=== PATIENT | male | born 1965 ===

== ENCOUNTER 2017-09-05 20:03 | Emergency (ER) | payer OTHER ==
[~2017-09-05] VITALS: Ht 172.7 cm; Wt 101.0 kg
[~2017-09-05 20:03] MED LIST: INSU100I18 SQ-INSULIN; LISI-167 PO; NPH,100V SQ-INSULIN; SULF-169 PO; ambilify INJ
[2017-09-05] MEDS ORDERED: SODIUM CHLORIDE 0.9% 1,000 ML IV ONE (20:48)
[2017-09-05] MEDS ORDERED: THIAMINE 100 MG in DEXTROSE 5% 50 ML IVPB ONE (21:00)
[2017-09-05] MEDS ORDERED: SODIUM CHLORIDE FLUSH 10ML SYR IVF ONE (21:00)
[2017-09-05 21:12] LABS: BASOPHILS # (AUTO) 0.03 x10^3/uL (0-0.1); BASOPHILS % (AUTO) 0 % (0-1); EOSINOPHILS # (AUTO) 0.02 x10^3/uL (0-0.4); EOSINOPHILS % (AUTO) 0 % (1-7); LYMPHOCYTES # (AUTO) 1.55 x10^3/uL (1-3.4); LYMPHOCYTES % (AUTO) 17 % (22-44); MD NO; MEAN CORPUSCULAR HEMOGLOBIN 31.8 pg (27.5-34.5); MEAN CORPUSCULAR HGB CONC 33.1 g/dL (33.2-36.2); MEAN CORPUSCULAR VOLUME 95.9 fL (81-97); MEAN PLATELET VOLUME 6.9 fL (7.4-10.4); MONOCYTES % (AUTO) 6 % (2-9); NEUTROPHILS % (AUTO) 77 % (42-75); PLATELET COUNT 297 x10^3/uL (130-400); RED BLOOD COUNT 5.22 x10^6/uL (4.38-5.82); RED CELL DISTRIBUTION WIDTH 13.7 % (9.4-14.8)
[2017-09-05 21:23] LABS: ALANINE AMINOTRANSFERASE 49 U/L (12-78); ALBUMIN 4.3 g/dL (3.4-5.0); ANION GAP 14 mmol/L (5-15); CALCIUM 8.3 mg/dL (8.5-10.1); CHLORIDE 104 mmol/L (98-107)
[2017-09-05 21:24] LABS: SALICYLATE LEVEL < 1.7 mg/dL (2.8-20.0)
[2017-09-05 21:25] LABS: ALKALINE PHOSPHATASE 155 U/L (45-117); BILIRUBIN,TOTAL 0.4 mg/dL (0.2-1.0); TOTAL PROTEIN 9.3 g/dL (6.4-8.2)
[2017-09-05 21:26] VITALS: BP 153/101
[2017-09-05 21:26] LABS: ACETAMINOPHEN < 2 mcg/mL (10-30)
[2017-09-05 21:53] LABS: AMPHETAMINE SCREEN, URINE Positive (Negative); BARBITURATE SCREEN, URINE Negative (Negative); BENZODIAZEPINE SCREEN, URINE Negative (Negative); CANNABINOID SCREEN, URINE Negative (Negative); COCAINE SCREEN, URINE Negative (Negative); METHADONE SCREEN, URINE Negative (Negative); OPIATE SCREEN, URINE Negative (Negative)
== END 2017-09-05 23:48 | disposition left against medical advice (07) ==
LOC: ED 23:42
DX: S43.422A Sprain of left rotator cuff capsule, initial encounter (principal); F10.120 Alcohol abuse with intoxication, uncomplicated; I10 Essential (primary) hypertension; E11.10 Type 2 diabetes mellitus with ketoacidosis without coma; X58.XXXA Exposure to other specified factors, initial encounter; Y93.89 Activity, other specified; Y92.830 Public park as the place of occurrence of the external cause; Y99.8 Other external cause status; Z79.4 Long term (current) use of insulin
CPT/HCPCS: 36415; 70450; 71045; 73030; 80053; 80307; 80329; 82140; 82962; 85025; 93005; 96365; 96366; 99285; J3411; J7030; G0480

== ENCOUNTER 2017-09-15 17:25 | Emergency (ER) | payer OTHER ==
[~2017-09-15] VITALS: Ht 177.8 cm; Wt 105.0 kg
[2017-09-15] MEDS ORDERED: IBUPROFEN 200 MG TABLET ONE (18:15)
[2017-09-15] MEDS ORDERED: IBUPROFEN 200 MG TABLET PO ONE (18:30)
[2017-09-15 18:57] VITALS: BP 166/103
== END 2017-09-15 18:59 | disposition home or self-care (01) ==
LOC: ED 18:53
DX: S06.0X0A Concussion without loss of consciousness, initial encounter (principal); S40.012A Contusion of left shoulder, initial encounter; Z72.89 Other problems related to lifestyle; F10.10 Alcohol abuse, uncomplicated; E11.10 Type 2 diabetes mellitus with ketoacidosis without coma; I10 Essential (primary) hypertension; W19.XXXA Unspecified fall, initial encounter; Y93.89 Activity, other specified; Y92.89 Other specified places as the place of occurrence of the external cause; Y99.9 Unspecified external cause status
CPT/HCPCS: 70450; 93005; 99284

== ENCOUNTER 2018-04-24 14:48 | Emergency (ER) | payer OTHER | END 2018-04-24 15:32 | LOC: ED 15:26 | DX: H57.8 Other specified disorders of eye and adnexa (principal); Z53.21 Procedure and treatment not carried out due to patient leaving prior to being seen by health care provider ==

== ENCOUNTER 2018-07-12 16:14 | Inpatient (IN) | payer MEDICAID ==
[~2018-07-12] VITALS: Ht 177.8 cm; Wt 112.2 kg
[2018-07-12] MEDS ORDERED: DILTIAZEM 125 MG in DEXTROSE 5% 100 ML IV SCH (16:27)
[2018-07-12] MEDS ORDERED: DILTIAZEM 5 MG/ML, 5ML IV ONE (16:30)
[2018-07-12] MEDS ORDERED: SODIUM CHLORIDE FLUSH 10ML SYR IVF ONE (16:30)
[2018-07-12] MEDS ORDERED: DILTIAZEM 5 MG/ML, 5ML ONE (16:44)
[2018-07-12 16:59] LABS: BASOPHILS # (AUTO) 0.03 x10^3/uL (0-0.1); BASOPHILS % (AUTO) 0 % (0-1); EOSINOPHILS # (AUTO) 0.04 x10^3/uL (0-0.4); EOSINOPHILS % (AUTO) 1 % (1-7); LYMPHOCYTES # (AUTO) 1.14 x10^3/uL (1-3.4); LYMPHOCYTES % (AUTO) 16 % (22-44); MD NO; MEAN CORPUSCULAR HGB CONC 33.6 g/dL (33.2-36.2); MEAN CORPUSCULAR VOLUME 98.1 fL (81-97); MEAN PLATELET VOLUME 6.9 fL (7.4-10.4); MONOCYTES # (AUTO) 0.89 x10^3/uL (0.2-0.8); MONOCYTES % (AUTO) 12 % (2-9); NEUTROPHILS # (AUTO) 5.26 x10^3/uL (1.8-6.8); NEUTROPHILS % (AUTO) 72 % (42-75); PLATELET COUNT 268 x10^3/uL (130-400); RED BLOOD COUNT 4.14 x10^6/uL (4.38-5.82); RED CELL DISTRIBUTION WIDTH 14.6 % (9.4-14.8)
[2018-07-12 17:08] LABS: INTERNATIONAL NORMALIZED RATIO 1.14 (0.93-1.1)
[2018-07-12 17:10] LABS: ALANINE AMINOTRANSFERASE 54 U/L (12-78); ALBUMIN 2.5 g/dL (3.4-5.0); ANION GAP 13 mmol/L (5-15); CALCIUM 7.9 mg/dL (8.5-10.1); CHLORIDE 99 mmol/L (98-107); CREATININE 0.86 mg/dL (0.7-1.3)
[2018-07-12 17:14] LABS: ALKALINE PHOSPHATASE 108 U/L (45-117); BILIRUBIN,TOTAL 0.5 mg/dL (0.2-1.0); T4 (THYROXINE) 7.4 mcg/dL (4.5-12.1); TOTAL PROTEIN 6.9 g/dL (6.4-8.2)
[2018-07-12 17:24] LABS: TROPONIN I 0.163 ng/mL (0.000-0.045)
[2018-07-12] MEDS ORDERED: CEFTRIAXONE PMX 1GM/50ML 50 ML ONE (17:25)
[2018-07-12] MEDS ORDERED: ENOXAPARIN 100 MG/ML ONE (17:25)
[2018-07-12] MEDS ORDERED: ENOXAPARIN 40 MG/0.4 ML ONE (17:25)
[2018-07-12] MEDS ORDERED: CEFTRIAXONE PMX 1GM/50ML 50 ML IVPB ONE (17:30)
[2018-07-12] MEDS ORDERED: ENOXAPARIN 120MG/0.8ML SQ SCH (18:00)
[2018-07-12] MEDS ORDERED: METOPROLOL TARTRATE 25 MG TABLET ONE (18:09)
[2018-07-12] MEDS ORDERED: FUROSEMIDE 40 MG/4 ML ONE (18:09)
[2018-07-12] MEDS: FUROSEMIDE 20 MG/2 ML IVPush SCH (18:19)
[2018-07-12] MEDS: METOPROLOL TARTRATE 25 MG TABLET PO SCH (18:19)
[2018-07-12 18:28] LABS: CHOL/HDL RATIO 3.4; LDL/HDL RATIO 1.9 (0.5-3.0)
[2018-07-12] MEDS ORDERED: CHLORDIAZEPOXIDE 10 MG CAPSULE PO PRN (18:30)
[2018-07-12] MEDS ORDERED: AZITHROMYCIN 500 MG in SODIUM CHLORIDE 0.9% 250 ML IVPB ONE (18:30)
[2018-07-12] MEDS ORDERED: LORazepam 2 MG/ML, 1ML IV PRN (18:30)
[2018-07-12 19:13] LABS: TROPONIN I 0.152 ng/mL (0.000-0.045)
[2018-07-12 20:36] LABS: HEMOGLOBIN A1C 6.6 % (4.2-6.3)
[2018-07-12] MEDS: INSULIN LISPRO 100 UNITS/ML, PEN SQ-INSULIN SCH (21:00)
[2018-07-12 21:43] VITALS: BP 110/75
[2018-07-12] MEDS: ATORVASTATIN 20 MG TABLET PO SCH (22:08)
[2018-07-12 23:48] LABS: TROPONIN I 0.139 ng/mL (0.000-0.045)
[2018-07-13] MEDS: HEPARIN 25,000 UNITS/500ML PMX 500 ML IV PRN ×2 (01:11→23:01)
[2018-07-13 01:47] VITALS: BP 97/60
[2018-07-13] MEDS: FUROSEMIDE 20 MG/2 ML IVPush SCH ×3 (02:39→17:40)
[2018-07-13] MEDS ORDERED: DILTIAZEM 125 MG in SODIUM CHLORIDE 0.9% 100 ML IV SCH (04:30)
[2018-07-13] MEDS: METOPROLOL TARTRATE 25 MG TABLET PO SCH ×2 (06:20→17:40)
[2018-07-13] MEDS: ASPIRIN 81 MG TABLET EC PO SCH (06:20)
[2018-07-13] MEDS: INSULIN LISPRO 100 UNITS/ML, PEN SQ-INSULIN SCH ×4 (07:00→20:49)
[2018-07-13 07:10] VITALS: BP 113/72
[2018-07-13] MEDS: HEPARIN 5,000 UNITS/ML, 1ML IV PRN ×3 (09:22→22:59)
[2018-07-13 10:02] LABS: ANION GAP 11 mmol/L (5-15); CALCIUM 7.8 mg/dL (8.5-10.1); CHLORIDE 101 mmol/L (98-107); CREATININE 0.78 mg/dL (0.7-1.3)
[2018-07-13 10:06] LABS: TROPONIN I 0.112 ng/mL (0.000-0.045)
[2018-07-13 13:05] VITALS: BP 121/78
[2018-07-13] MEDS: FUROSEMIDE 20 MG TABLET PO SCH (16:55)
[2018-07-13 20:06] VITALS: BP 111/77
[2018-07-13] MEDS: ATORVASTATIN 20 MG TABLET PO SCH (20:43)
[2018-07-13] MEDS: ACETAMINOPHEN 650 MG/20.3 ML UDC PO PRN (20:49)
[2018-07-14] MEDS: FUROSEMIDE 20 MG/2 ML IVPush SCH (02:21)
[2018-07-14] MEDS: ACETAMINOPHEN 650 MG/20.3 ML UDC PO PRN ×4 (02:36→21:05)
[2018-07-14 02:42] VITALS: BP 125/88
[2018-07-14 06:12] LABS: ALBUMIN 2.3 g/dL (3.4-5.0); ANION GAP 8 mmol/L (5-15); CHLORIDE 101 mmol/L (98-107)
[2018-07-14] MEDS: METOPROLOL TARTRATE 25 MG TABLET PO SCH ×2 (06:13→16:47)
[2018-07-14] MEDS: ASPIRIN 81 MG TABLET EC PO SCH (06:13)
[2018-07-14 06:18] LABS: ALANINE AMINOTRANSFERASE 38 U/L (12-78); ALKALINE PHOSPHATASE 107 U/L (45-117); BILIRUBIN,TOTAL 0.9 mg/dL (0.2-1.0); CREATININE 0.89 mg/dL (0.7-1.3); TOTAL PROTEIN 6.9 g/dL (6.4-8.2)
[2018-07-14] MEDS: HEPARIN 5,000 UNITS/ML, 1ML IV PRN ×3 (06:44→21:06)
[2018-07-14] MEDS: INSULIN LISPRO 100 UNITS/ML, PEN SQ-INSULIN SCH ×4 (07:00→21:00)
[2018-07-14 07:12] VITALS: BP 122/86
[2018-07-14] MEDS: FUROSEMIDE 20 MG TABLET PO SCH (07:55)
[2018-07-14] MEDS: LISINOPRIL 5 MG TABLET PO SCH (10:11)
[2018-07-14] MEDS: FUROSEMIDE 40 MG/4 ML IV SCH ×2 (10:11→16:47)
[2018-07-14 12:15] VITALS: BP 113/77
[2018-07-14] MEDS: HEPARIN 25,000 UNITS/500ML PMX 500 ML IV PRN (13:42)
[2018-07-14] MEDS ORDERED: FUROSEMIDE 20 MG/2 ML IVPush SCH (14:00)
[2018-07-14] MEDS ORDERED: ACETAMINOPHEN 325 MG TABLET ONE (16:10)
[2018-07-14] MEDS: POTASSIUM CHLORIDE 20 MEQ TAB.ER.PRT PO SCH (16:47)
[2018-07-14 20:11] VITALS: BP 106/70
[2018-07-14] MEDS: ATORVASTATIN 20 MG TABLET PO SCH (21:19)
[2018-07-15 02:44] VITALS: BP 112/81
[2018-07-15] MEDS: HEPARIN 25,000 UNITS/500ML PMX 500 ML IV PRN ×2 (03:10→15:19)
[2018-07-15 03:56] LABS: ANION GAP 6 mmol/L (5-15); CALCIUM 7.6 mg/dL (8.5-10.1); CHLORIDE 102 mmol/L (98-107)
[2018-07-15 04:00] LABS: CREATININE 0.75 mg/dL (0.7-1.3)
[2018-07-15] MEDS: ACETAMINOPHEN 650 MG/20.3 ML UDC PO PRN ×2 (05:43→20:41)
[2018-07-15] MEDS: METOPROLOL TARTRATE 25 MG TABLET PO SCH ×2 (05:44→16:57)
[2018-07-15] MEDS: ASPIRIN 81 MG TABLET EC PO SCH (05:44)
[2018-07-15 06:40] VITALS: BP 120/71
[2018-07-15] MEDS: INSULIN LISPRO 100 UNITS/ML, PEN SQ-INSULIN SCH ×4 (07:00→20:47)
[2018-07-15] MEDS: LISINOPRIL 5 MG TABLET PO SCH (08:52)
[2018-07-15] MEDS: POTASSIUM CHLORIDE 20 MEQ TAB.ER.PRT PO SCH ×2 (08:52→16:48)
[2018-07-15] MEDS: FUROSEMIDE 40 MG/4 ML IV SCH ×2 (08:53→16:47)
[2018-07-15] MEDS: HEPARIN 5,000 UNITS/ML, 1ML IV PRN (10:29)
[2018-07-15 12:46] VITALS: BP 133/83
[2018-07-15 16:57] VITALS: BP 129/83
[2018-07-15 18:45] VITALS: BP 109/76
[2018-07-15] MEDS: ATORVASTATIN 20 MG TABLET PO SCH (20:43)
[2018-07-16] MEDS: HEPARIN 25,000 UNITS/500ML PMX 500 ML IV PRN (01:23)
[2018-07-16 03:20] VITALS: BP_SYST 139; BP_DIAS 103; BP_DIAS 98
[2018-07-16] MEDS: METOPROLOL TARTRATE 25 MG TABLET PO SCH ×2 (05:24→17:06)
[2018-07-16] MEDS: ASPIRIN 81 MG TABLET EC PO SCH (05:24)
[2018-07-16] MEDS: ACETAMINOPHEN 650 MG/20.3 ML UDC PO PRN ×2 (05:24→17:06)
[2018-07-16] MEDS: INSULIN LISPRO 100 UNITS/ML, PEN SQ-INSULIN SCH (07:00)
[2018-07-16 07:26] VITALS: BP 124/86
[2018-07-16] MEDS: FUROSEMIDE 40 MG/4 ML IV SCH ×2 (08:52→17:06)
[2018-07-16] MEDS: POTASSIUM CHLORIDE 20 MEQ TAB.ER.PRT PO SCH ×2 (08:52→17:06)
[2018-07-16] MEDS: LISINOPRIL 5 MG TABLET PO SCH (08:52)
[2018-07-16 12:41] VITALS: BP 126/85
[2018-07-16] MEDS: metFORMIN 500 MG TABLET PO SCH (17:06)
[2018-07-16 19:57] VITALS: BP 119/86
[2018-07-16] MEDS: ATORVASTATIN 20 MG TABLET PO SCH (20:51)
[2018-07-17] MEDS: ACETAMINOPHEN 650 MG/20.3 ML UDC PO PRN ×3 (01:21→17:42)
[2018-07-17 01:51] VITALS: BP 128/89
[2018-07-17 05:54] LABS: ALANINE AMINOTRANSFERASE 25 U/L (12-78); ALBUMIN 2.4 g/dL (3.4-5.0); ANION GAP 8 mmol/L (5-15); CALCIUM 8.7 mg/dL (8.5-10.1); CHLORIDE 104 mmol/L (98-107)
[2018-07-17 05:59] LABS: ALKALINE PHOSPHATASE 96 U/L (45-117); BILIRUBIN,TOTAL 0.7 mg/dL (0.2-1.0); CREATININE 0.95 mg/dL (0.7-1.3); TOTAL PROTEIN 6.9 g/dL (6.4-8.2)
[2018-07-17 06:03] LABS: BASOPHILS # (AUTO) 0.04 x10^3/uL (0-0.1); BASOPHILS % (AUTO) 1 % (0-1); EOSINOPHILS % (AUTO) 3 % (1-7); LYMPHOCYTES % (AUTO) 21 % (22-44); MD NO; MEAN CORPUSCULAR HGB CONC 33.1 g/dL (33.2-36.2); MEAN CORPUSCULAR VOLUME 99.8 fL (81-97); MONOCYTES # (AUTO) 1.21 x10^3/uL (0.2-0.8); MONOCYTES % (AUTO) 20 % (2-9); NEUTROPHILS # (AUTO) 3.47 x10^3/uL (1.8-6.8); NEUTROPHILS % (AUTO) 56 % (42-75); PLATELET COUNT 326 x10^3/uL (130-400); RED BLOOD COUNT 4.35 x10^6/uL (4.38-5.82); RED CELL DISTRIBUTION WIDTH 15.5 % (9.4-14.8)
[2018-07-17] MEDS: ASPIRIN 325 MG TABLET EC PO SCH (06:21)
[2018-07-17] MEDS: METOPROLOL TARTRATE 25 MG TABLET PO SCH ×2 (06:21→17:36)
[2018-07-17 08:00] VITALS: BP 111/80
[2018-07-17] MEDS: LISINOPRIL 5 MG TABLET PO SCH (08:25)
[2018-07-17] MEDS: metFORMIN 500 MG TABLET PO SCH ×2 (08:25→17:35)
[2018-07-17] MEDS: POTASSIUM CHLORIDE 20 MEQ TAB.ER.PRT PO SCH ×2 (08:25→17:36)
[2018-07-17] MEDS: FUROSEMIDE 40 MG/4 ML IV SCH ×2 (08:25→17:35)
[2018-07-17] MEDS: ENOXAPARIN 40 MG/0.4 ML SQ SCH (13:00)
[2018-07-17 13:52] VITALS: BP 113/70
[2018-07-17 18:39] VITALS: BP 102/67
[2018-07-17] MEDS: ATORVASTATIN 20 MG TABLET PO SCH (21:35)
[2018-07-18 01:06] VITALS: BP 122/81
[2018-07-18 05:28] LABS: ANION GAP 7 mmol/L (5-15); CALCIUM 8.6 mg/dL (8.5-10.1); CHLORIDE 104 mmol/L (98-107)
[2018-07-18] MEDS: ASPIRIN 325 MG TABLET EC PO SCH (05:58)
[2018-07-18] MEDS: METOPROLOL TARTRATE 25 MG TABLET PO SCH ×2 (05:58→17:41)
[2018-07-18 08:00] VITALS: BP 122/77
[2018-07-18] MEDS: FUROSEMIDE 40 MG/4 ML IV SCH ×2 (08:17→17:40)
[2018-07-18] MEDS: metFORMIN 500 MG TABLET PO SCH ×2 (08:17→17:40)
[2018-07-18] MEDS: POTASSIUM CHLORIDE 20 MEQ TAB.ER.PRT PO SCH ×2 (08:17→17:40)
[2018-07-18] MEDS: LISINOPRIL 5 MG TABLET PO SCH (08:18)
[2018-07-18] MEDS ORDERED: OXYcodone/APAP 5/325MG TABLET PO PRN (11:00)
[2018-07-18] MEDS ORDERED: MORPHINE SULFATE 4 MG/ML, 1ML IVPush PRN (11:00)
[2018-07-18] MEDS ORDERED: KETOROLAC 30 MG/1 ML IVPush PRN (11:00)
[2018-07-18] MEDS: ENOXAPARIN 40 MG/0.4 ML SQ SCH (12:15)
[2018-07-18 15:19] VITALS: BP 101/68
[2018-07-18 19:24] VITALS: BP 111/82
[2018-07-18] MEDS: ATORVASTATIN 20 MG TABLET PO SCH (21:12)
[2018-07-19 01:21] VITALS: BP 121/78
[2018-07-19] MEDS: METOPROLOL TARTRATE 25 MG TABLET PO SCH (05:26)
[2018-07-19] MEDS: ASPIRIN 325 MG TABLET EC PO SCH (05:26)
[2018-07-19 07:08] VITALS: BP 113/79
[2018-07-19] MEDS: LISINOPRIL 5 MG TABLET PO SCH (09:10)
[2018-07-19] MEDS: POTASSIUM CHLORIDE 20 MEQ TAB.ER.PRT PO SCH (09:10)
[2018-07-19] MEDS: FUROSEMIDE 40 MG/4 ML IV SCH (09:10)
[2018-07-19] MEDS: metFORMIN 500 MG TABLET PO SCH (09:11)
[2018-07-19 09:49] LABS: ANION GAP 9 mmol/L (5-15); CALCIUM 8.5 mg/dL (8.5-10.1); CHLORIDE 105 mmol/L (98-107); CREATININE 1.09 mg/dL (0.7-1.3)
[2018-07-19] MEDS ORDERED: ATOR20TA37 PO (10:53)
[2018-07-19] MEDS ORDERED: METF500T PO (10:53)
[2018-07-19] MEDS ORDERED: CEPH-368 PO (10:53)
[2018-07-19] MEDS ORDERED: POTA20TA6 PO (10:53)
[2018-07-19] MEDS ORDERED: ASPI-650 PO (10:53)
[2018-07-19] MEDS ORDERED: FURO40TA6 PO (10:53)
[2018-07-19] MEDS ORDERED: LISI5TAB7 PO (10:53)
[2018-07-19] MEDS ORDERED: METO25TA35 PO (10:53)
[2018-07-19] MEDS ORDERED: IBUP-1221 PO (10:58)
[2018-07-19] MEDS ORDERED: TRAM50TA2 PO (10:58)
[2018-07-19] MEDS ORDERED: CEPHALEXIN 250 MG CAPSULE PO SCH (11:00)
[2018-07-19] MEDS ORDERED: NYST15PO9 TP (11:05)
[2018-07-19 12:58] VITALS: BP 96/68
[2018-07-19] MEDS ORDERED: NYSTATIN TOPICAL POWDER 15GM TP PRN (14:00)
[2018-07-19] MEDS ORDERED: FUROSEMIDE 40 MG TABLET PO SCH (17:00)
== END 2018-07-19 14:21 | disposition left against medical advice (07) | DRG 291 ==
LOC: ED 16:51 → EDIP 17:39 → 5SO 19:03
PROVIDERS: ADMIT Internal Medicine; ATTEND Internal Medicine
DX: I11.0 Hypertensive heart disease with heart failure (principal); J15.9 Unspecified bacterial pneumonia; J96.01 Acute respiratory failure with hypoxia; D68.69 Other thrombophilia; E87.1 Hypo-osmolality and hyponatremia; I50.43 Acute on chronic combined systolic (congestive) and diastolic (congestive) heart failure; Z53.21 Procedure and treatment not carried out due to patient leaving prior to being seen by health care provider; E11.65 Type 2 diabetes mellitus with hyperglycemia; F10.10 Alcohol abuse, uncomplicated; F17.200 Nicotine dependence, unspecified, uncomplicated; I25.5 Ischemic cardiomyopathy; I48.91 Unspecified atrial fibrillation; N49.2 Inflammatory disorders of scrotum; N50.89 Other specified disorders of the male genital organs; Z59.0 Homelessness; Z79.82 Long term (current) use of aspirin; Z79.84 Long term (current) use of oral hypoglycemic drugs; Z79.899 Other long term (current) drug therapy; Z91.19 Patient's noncompliance with other medical treatment and regimen
CPT/HCPCS: 36415; 36600; 71045; 76870; 80048; 80053; 80061; 82803; 82962; 83036; 83605; 83735; 83880; 84100; 84436; 84443; 84484; 85025; 85520; 85610; 85730; 87040; 93005; 96365; 96368; 96372; 96375; C8929; G0378; J0696; J1644; J1650; J1885; J1940; Q9957; J1815

== ENCOUNTER 2018-09-21 18:25 | Emergency (ER) | payer MEDICAID ==
[~2018-09-21] VITALS: Ht 177.8 cm; Wt 120.0 kg
[~2018-09-21 18:25] MED LIST changes: +AMIO200T42 PO; +AMOX-291 PO; +ASPI-650 PO; +ATOR20TA37 PO; +BISA10SU65 PR; +CARV3.1212 PO; +CEPH-368 PO; +CLAR500T PO; +FURO40TA6 PO; +HEPA50002 SQ; +IBUP-1221 PO; +IPRA3AMP30 NPPB; +LIDO700A20 TD; +LISI5TAB7 PO; +METF500T PO; +METO25TA35 PO; +NYST15PO9 TP; +ONDA4TAB13 PO; +PANT20TA3 PO; +POTA20TA6 PO; +SENN8.8S5 NG; +SODI44SP NAS; +THIA100T67 PO; +TRAM50TA2 PO
--- NOTE | 2018-09-21 18:55 | NUR ---
Provided report to EDITH Radford. All questions answered.
--- NOTE | 2018-09-21 18:56 | NUR ---
LATE NOTE ENTRY FOR 1850: First contact with pt. Pt has ETOH odor on breath. Pt slurring words and is AO to self. Pt has unsteady gait and balance at bedside to use urinal. Pt connected to all monitors. All safety measures in place. Pt has bilateral erythema and edema of lower extremities. No needs expressed at this time.
[2018-09-21] MEDS ORDERED: SODIUM CHLORIDE FLUSH 10ML SYR IVF ONE (19:00)
[2018-09-21 19:17] LABS: MICROSCOPIC NOT IND
[2018-09-21 19:26] LABS: BASOPHILS # (AUTO) 0.03 x10^3/uL (0-0.1); BASOPHILS % (AUTO) 0 % (0-1); EOSINOPHILS # (AUTO) 0.43 x10^3/uL (0-0.4); EOSINOPHILS % (AUTO) 5 % (1-7); LYMPHOCYTES # (AUTO) 1.63 x10^3/uL (1-3.4); LYMPHOCYTES % (AUTO) 20 % (22-44); MD NO; MEAN CORPUSCULAR HEMOGLOBIN 31.7 pg (27.5-34.5); MEAN CORPUSCULAR HGB CONC 33.8 g/dL (33.2-36.2); MEAN CORPUSCULAR VOLUME 93.8 fL (81-97); MEAN PLATELET VOLUME 6.7 fL (7.4-10.4); MONOCYTES # (AUTO) 0.79 x10^3/uL (0.2-0.8); MONOCYTES % (AUTO) 10 % (2-9); NEUTROPHILS # (AUTO) 5.18 x10^3/uL (1.8-6.8); NEUTROPHILS % (AUTO) 64 % (42-75); PLATELET COUNT 468 x10^3/uL (130-400); RED CELL DISTRIBUTION WIDTH 17.5 % (9.4-14.8)
[2018-09-21 19:30] LABS: CULTURE INDICATED? NO
[2018-09-21 19:33] LABS: INTERNATIONAL NORMALIZED RATIO 0.95 (0.93-1.1)
[2018-09-21 19:37] LABS: ALANINE AMINOTRANSFERASE 13 U/L (12-78); ALBUMIN 3.2 g/dL (3.4-5.0); ANION GAP 6 mmol/L (5-15); CALCIUM 8.1 mg/dL (8.5-10.1); CHLORIDE 113 mmol/L (98-107); CREATININE 0.72 mg/dL (0.7-1.3)
[2018-09-21 19:42] LABS: ALKALINE PHOSPHATASE 149 U/L (45-117); BILIRUBIN,TOTAL 0.2 mg/dL (0.2-1.0); TOTAL PROTEIN 7.8 g/dL (6.4-8.2); TROPONIN I 0.019 ng/mL (0.000-0.045)
[2018-09-21 20:14] LABS: ACETONE, SERUM Trace (10mg/dL) mg/dL (Negative)
[2018-09-21] MEDS ORDERED: FUROSEMIDE 40 MG/4 ML IV ONE (21:00)
[2018-09-21] MEDS ORDERED: FUROSEMIDE 40 MG/4 ML ONE (21:24)
--- NOTE | 2018-09-21 22:28 | NUR ---
PT RESTING ON GURNEY, ATTEMPTED TO AMBULATE AND PT STILL UNSTEADY ON HIS FEET.
[2018-09-21 22:46] VITALS: BP 116/65
--- NOTE | 2018-09-22 00:01 | NUR ---
PT AMBULATING IN HALLWAY WITH SLOW STEADY GAIT. YELLING AT REGISTRATION FOR HIS MEDICAID CARD.
== END 2018-09-22 00:03 | disposition home or self-care (01) ==
LOC: ED 23:59
DX: I87.2 Venous insufficiency (chronic) (peripheral) (principal); F10.129 Alcohol abuse with intoxication, unspecified; E11.9 Type 2 diabetes mellitus without complications; I11.0 Hypertensive heart disease with heart failure; I50.9 Heart failure, unspecified; I42.9 Cardiomyopathy, unspecified; I48.91 Unspecified atrial fibrillation; Z72.9 Problem related to lifestyle, unspecified; Z91.14 Patient's other noncompliance with medication regimen; Y90.9 Presence of alcohol in blood, level not specified
CPT/HCPCS: 36415; 71045; 80053; 80307; 81003; 82010; 83615; 83735; 83880; 84484; 85025; 85610; 87040; 93005; 96374; 99284; J1940

== ENCOUNTER 2018-09-23 08:03 | Inpatient (IN) | payer MEDICARE, MEDICAID ==
[~2018-09-23] VITALS: Ht 177.8 cm; Wt 111.5 kg
--- NOTE | 2018-09-23 08:44 | NUR ---
BLE swelling, redness & pain x 2 days. Noticed rash on chest this morning. Denies dyspnea or CP.
[2018-09-23] MEDS ORDERED: methylPREDNISolone SOD SUCC 125 MG/2 ML IV ONE (09:27)
[2018-09-23] MEDS ORDERED: MORPHINE SULFATE 4 MG/ML, 1ML IVPush PRN (09:30)
[2018-09-23] MEDS ORDERED: SODIUM CHLORIDE FLUSH 10ML SYR IVF ONE (09:30)
[2018-09-23] MEDS ORDERED: methylPREDNISolone SOD SUCC 125 MG/2 ML ONE (09:40)
[2018-09-23] MEDS ORDERED: MORPHINE SULFATE 4 MG/ML, 1ML ONE (09:40)
[2018-09-23] MEDS ORDERED: CEFTRIAXONE PMX 1GM/50ML 50 ML IVPB ONE (10:00)
[2018-09-23 10:05] LABS: BASOPHILS # (AUTO) 0.02 x10^3/uL (0-0.1); BASOPHILS % (AUTO) 0 % (0-1); EOSINOPHILS # (AUTO) 0.35 x10^3/uL (0-0.4); EOSINOPHILS % (AUTO) 4 % (1-7); LYMPHOCYTES # (AUTO) 0.89 x10^3/uL (1-3.4); LYMPHOCYTES % (AUTO) 10 % (22-44); MD NO; MEAN CORPUSCULAR HEMOGLOBIN 30.3 pg (27.5-34.5); MEAN CORPUSCULAR HGB CONC 32.2 g/dL (33.2-36.2); MEAN CORPUSCULAR VOLUME 94.2 fL (81-97); MEAN PLATELET VOLUME 6.8 fL (7.4-10.4); MONOCYTES # (AUTO) 0.91 x10^3/uL (0.2-0.8); MONOCYTES % (AUTO) 10 % (2-9); NEUTROPHILS # (AUTO) 6.82 x10^3/uL (1.8-6.8); NEUTROPHILS % (AUTO) 76 % (42-75); PLATELET COUNT 444 x10^3/uL (130-400); RED BLOOD COUNT 4.27 x10^6/uL (4.38-5.82); RED CELL DISTRIBUTION WIDTH 17.6 % (9.4-14.8)
[2018-09-23 10:20] LABS: ALBUMIN 3.3 g/dL (3.4-5.0); ANION GAP 8 mmol/L (5-15); CALCIUM 8.3 mg/dL (8.5-10.1); CHLORIDE 107 mmol/L (98-107)
[2018-09-23 10:23] LABS: ALANINE AMINOTRANSFERASE 12 U/L (12-78); ALKALINE PHOSPHATASE 154 U/L (45-117); BILIRUBIN,TOTAL 0.4 mg/dL (0.2-1.0); CREATININE 0.72 mg/dL (0.7-1.3); TOTAL PROTEIN 7.6 g/dL (6.4-8.2)
[2018-09-23] MEDS ORDERED: CEFTRIAXONE PMX 1GM/50ML 50 ML ONE (10:49)
--- NOTE | 2018-09-23 11:17 | NUR ---
PT WITH GERMAN. DENIED BY ANI AT [facility] AND [place] AT [facility]
--- NOTE | 2018-09-23 11:48 | NUR ---
SBAR TO JESS SHARMA VIA TELEPHONE
[2018-09-23] MEDS ORDERED: LABETALOL 5MG/ML, 20ML IVPush PRN (12:00)
[2018-09-23] MEDS ORDERED: ONDANSETRON ODT 4 MG PO PRN (12:00)
[2018-09-23] MEDS ORDERED: VANCOMYCIN PER PHARMACY MC PRN (12:00)
[2018-09-23] MEDS ORDERED: ONDANSETRON 2MG/ML, 2ML IVPush PRN (12:00)
[2018-09-23] MEDS ORDERED: PHARMACOKINETIC MONITORING MC PRN (12:30)
[2018-09-23] MEDS: ENOXAPARIN 40 MG/0.4 ML SQ SCH (14:36)
[2018-09-23] MEDS: VANCOMYCIN 1,800 MG in SODIUM CHLORIDE 0.9% 250 ML IV SCH (14:36)
[2018-09-23 14:48] VITALS: BP 169/97
[2018-09-23] MEDS: AMPICILLIN/SULBACTAM 3 GM in SODIUM CHLORIDE 0.9% 100 ML IV SCH ×2 (16:58→22:27)
[2018-09-23] MEDS: HYDROcodone/APAP 5/325 TABLET PO PRN (16:58)
[2018-09-23 21:08] VITALS: BP 161/96
[2018-09-24 01:26] VITALS: BP 167/98
[2018-09-24] MEDS: VANCOMYCIN 1,800 MG in SODIUM CHLORIDE 0.9% 250 ML IV SCH ×2 (01:56→13:58)
[2018-09-24] MEDS: HYDROcodone/APAP 5/325 TABLET PO PRN ×2 (01:56→20:45)
[2018-09-24] MEDS: AMPICILLIN/SULBACTAM 3 GM in SODIUM CHLORIDE 0.9% 100 ML IV SCH ×4 (04:20→21:33)
[2018-09-24] MEDS: PANTOPROZOLE 40MG TABLET PO SCH (05:21)
[2018-09-24] MEDS ORDERED: PANTOPRAZOLE 40 MG IV IVPush SCH (07:30)
[2018-09-24 07:32] VITALS: BP 156/93
[2018-09-24] MEDS: ENOXAPARIN 40 MG/0.4 ML SQ SCH (13:58)
[2018-09-24 14:33] VITALS: BP 150/89
[2018-09-24 19:02] VITALS: BP 162/93
[2018-09-25 01:30] VITALS: BP_SYST 187; BP_SYST 196; BP_DIAS 105; BP_DIAS 118
[2018-09-25] MEDS: LABETALOL 5 MG/ML SYRINGE IVPush PRN (01:55)
[2018-09-25 01:58] VITALS: BP 179/101
[2018-09-25 02:49] VITALS: BP 153/83
[2018-09-25] MEDS: AMPICILLIN/SULBACTAM 3 GM in SODIUM CHLORIDE 0.9% 100 ML IV SCH ×3 (03:52→19:20)
[2018-09-25 05:31] LABS: BASOPHILS # (AUTO) 0.04 x10^3/uL (0-0.1); BASOPHILS % (AUTO) 1 % (0-1); EOSINOPHILS # (AUTO) 0.16 x10^3/uL (0-0.4); EOSINOPHILS % (AUTO) 2 % (1-7); LYMPHOCYTES # (AUTO) 1.59 x10^3/uL (1-3.4); LYMPHOCYTES % (AUTO) 22 % (22-44); MD NO; MEAN CORPUSCULAR HEMOGLOBIN 31.6 pg (27.5-34.5); MEAN CORPUSCULAR HGB CONC 33.4 g/dL (33.2-36.2); MEAN CORPUSCULAR VOLUME 94.7 fL (81-97); MEAN PLATELET VOLUME 6.9 fL (7.4-10.4); MONOCYTES # (AUTO) 0.96 x10^3/uL (0.2-0.8); MONOCYTES % (AUTO) 13 % (2-9); NEUTROPHILS % (AUTO) 63 % (42-75); PLATELET COUNT 406 x10^3/uL (130-400); RED BLOOD COUNT 4.38 x10^6/uL (4.38-5.82); RED CELL DISTRIBUTION WIDTH 17.3 % (9.4-14.8)
[2018-09-25 05:40] LABS: ALANINE AMINOTRANSFERASE 13 U/L (12-78); ALBUMIN 2.8 g/dL (3.4-5.0); ANION GAP 4 mmol/L (5-15); CALCIUM 8.1 mg/dL (8.5-10.1); CHLORIDE 109 mmol/L (98-107)
[2018-09-25 05:42] LABS: ALKALINE PHOSPHATASE 113 U/L (45-117); BILIRUBIN,TOTAL 0.3 mg/dL (0.2-1.0); TOTAL PROTEIN 6.8 g/dL (6.4-8.2)
[2018-09-25] MEDS: HYDROcodone/APAP 5/325 TABLET PO PRN ×3 (06:00→23:39)
[2018-09-25] MEDS: PANTOPROZOLE 40MG TABLET PO SCH (06:00)
[2018-09-25 07:17] VITALS: BP 169/96
[2018-09-25] MEDS: VANCOMYCIN 1,800 MG in SODIUM CHLORIDE 0.9% 250 ML IV SCH (09:01)
[2018-09-25 12:38] VITALS: BP 179/84
[2018-09-25] MEDS: ENOXAPARIN 40 MG/0.4 ML SQ SCH (14:58)
[2018-09-25 19:43] VITALS: BP 161/91
[2018-09-26] MEDS: AMPICILLIN/SULBACTAM 3 GM in SODIUM CHLORIDE 0.9% 100 ML IV SCH ×3 (01:04→13:54)
[2018-09-26] MEDS: VANCOMYCIN 1,800 MG in SODIUM CHLORIDE 0.9% 250 ML IV SCH (01:57)
[2018-09-26 02:08] VITALS: BP 153/89
[2018-09-26] MEDS: PANTOPROZOLE 40MG TABLET PO SCH (05:12)
[2018-09-26 05:21] LABS: ALANINE AMINOTRANSFERASE 14 U/L (12-78); ALBUMIN 3.2 g/dL (3.4-5.0); ANION GAP 5 mmol/L (5-15); CALCIUM 8.7 mg/dL (8.5-10.1); CHLORIDE 108 mmol/L (98-107)
[2018-09-26 05:23] LABS: ALKALINE PHOSPHATASE 118 U/L (45-117); BILIRUBIN,TOTAL 0.5 mg/dL (0.2-1.0); CREATININE 0.89 mg/dL (0.7-1.3); TOTAL PROTEIN 7.7 g/dL (6.4-8.2)
[2018-09-26 05:26] LABS: BASOPHILS # (AUTO) 0.05 x10^3/uL (0-0.1); BASOPHILS % (AUTO) 1 % (0-1); EOSINOPHILS # (AUTO) 0.36 x10^3/uL (0-0.4); EOSINOPHILS % (AUTO) 5 % (1-7); LYMPHOCYTES % (AUTO) 20 % (22-44); MD NO; MEAN CORPUSCULAR HEMOGLOBIN 31.3 pg (27.5-34.5); MEAN CORPUSCULAR HGB CONC 32.7 g/dL (33.2-36.2); MEAN CORPUSCULAR VOLUME 95.7 fL (81-97); MONOCYTES # (AUTO) 0.86 x10^3/uL (0.2-0.8); MONOCYTES % (AUTO) 12 % (2-9); NEUTROPHILS # (AUTO) 4.36 x10^3/uL (1.8-6.8); NEUTROPHILS % (AUTO) 62 % (42-75); PLATELET COUNT 419 x10^3/uL (130-400); RED BLOOD COUNT 5.05 x10^6/uL (4.38-5.82); RED CELL DISTRIBUTION WIDTH 17.9 % (9.4-14.8)
[2018-09-26 08:26] VITALS: BP 180/117
[2018-09-26] MEDS: LABETALOL 5 MG/ML SYRINGE IVPush PRN (08:27)
[2018-09-26 09:42] VITALS: BP 151/92
[2018-09-26] MEDS ORDERED: AMOX1TAB64 PO (12:47)
[2018-09-26] MEDS ORDERED: DOXY100C2 PO (12:47)
[2018-09-26 14:50] VITALS: BP 142/82
[2018-09-26] MEDS: ENOXAPARIN 40 MG/0.4 ML SQ SCH (15:07)
== END 2018-09-26 16:42 | disposition home or self-care (01) | DRG 603 ==
LOC: ED 10:07 → EDIP 10:56 → 3NE 12:09
PROVIDERS: ADMIT Internal Medicine; ATTEND Internal Medicine
DX: L03.115 Cellulitis of right lower limb (principal); D68.69 Other thrombophilia; I42.9 Cardiomyopathy, unspecified; I50.20 Unspecified systolic (congestive) heart failure; K92.2 Gastrointestinal hemorrhage, unspecified; L03.116 Cellulitis of left lower limb; D64.9 Anemia, unspecified; E11.9 Type 2 diabetes mellitus without complications; F17.210 Nicotine dependence, cigarettes, uncomplicated; I11.0 Hypertensive heart disease with heart failure; I48.91 Unspecified atrial fibrillation; I87.2 Venous insufficiency (chronic) (peripheral); Z59.0 Homelessness; Z79.01 Long term (current) use of anticoagulants; Z86.73 Personal history of transient ischemic attack (TIA), and cerebral infarction without residual deficits; Z86.74 Personal history of sudden cardiac arrest; Z91.19 Patient's noncompliance with other medical treatment and regimen
CPT/HCPCS: 36415; 80053; 80202; 83605; 83735; 84100; 85025; 87040; 93970; 96365; 96375; 99285; G0378; J0295; J0696; J1650; J3370; J2930; J7050

== ENCOUNTER 2018-11-04 17:44 | Emergency (ER) | payer MEDICAID, MEDICARE ==
[~2018-11-04] VITALS: Ht 172.7 cm; Wt 110.0 kg
[~2018-11-04 17:44] MED LIST changes: +AMOX1TAB64 PO; +DOXY100C2 PO
[2018-11-04 17:52] VITALS: BP 162/83
--- NOTE | 2018-11-04 18:20 | NUR ---
PT TO ED FOR BILATERAL LOWER LEG CELLULITIS. PA ASSESSMENT COMPLETE. IV ESTABLISHED. LABS AND BLOOD CULTURES DRAWN. AWAITING FURTHER ORDERS.
[2018-11-04] MEDS ORDERED: AMPICILLIN/SULBACTAM 3 GM in SODIUM CHLORIDE 0.9% 100 ML IV ONE (18:30)
[2018-11-04] MEDS ORDERED: SODIUM CHLORIDE FLUSH 10ML SYR IVF ONE (18:30)
--- NOTE | 2018-11-04 18:30 | NUR ---
US AT BEDSIDE
[2018-11-04 18:35] LABS: BASOPHILS # (AUTO) 0.05 x10^3/uL (0-0.1); BASOPHILS % (AUTO) 1 % (0-1); EOSINOPHILS # (AUTO) 0.21 x10^3/uL (0-0.4); EOSINOPHILS % (AUTO) 3 % (1-7); LYMPHOCYTES # (AUTO) 1.55 x10^3/uL (1-3.4); LYMPHOCYTES % (AUTO) 21 % (22-44); MD NO; MEAN CORPUSCULAR HEMOGLOBIN 30.6 pg (27.5-34.5); MEAN CORPUSCULAR HGB CONC 33.1 g/dL (33.2-36.2); MEAN CORPUSCULAR VOLUME 92.3 fL (81-97); MEAN PLATELET VOLUME 6.8 fL (7.4-10.4); MONOCYTES # (AUTO) 1.32 x10^3/uL (0.2-0.8); MONOCYTES % (AUTO) 18 % (2-9); NEUTROPHILS % (AUTO) 59 % (42-75); PLATELET COUNT 385 x10^3/uL (130-400); RED BLOOD COUNT 4.29 x10^6/uL (4.38-5.82); RED CELL DISTRIBUTION WIDTH 17.4 % (9.4-14.8)
[2018-11-04 18:41] LABS: INTERNATIONAL NORMALIZED RATIO 0.97 (0.93-1.1); PROTHROMBIN TIME 10.2 Seconds (9.6-11.5)
[2018-11-04 18:42] LABS: ALANINE AMINOTRANSFERASE 89 U/L (12-78); ALBUMIN 3.3 g/dL (3.4-5.0); ANION GAP 8 mmol/L (5-15); CALCIUM 7.9 mg/dL (8.5-10.1); CHLORIDE 108 mmol/L (98-107); CREATININE 0.68 mg/dL (0.7-1.3)
[2018-11-04 18:44] LABS: ALKALINE PHOSPHATASE 131 U/L (45-117); BILIRUBIN,TOTAL 0.2 mg/dL (0.2-1.0); TOTAL PROTEIN 7.6 g/dL (6.4-8.2)
--- NOTE | 2018-11-04 18:59 | NUR ---
PT MEDICATED PER SEP. ABX STARTED AFTER BC COLLECTED. PT RESTING IN ROOM. NO NEEDS AT THIS TIME.
== END 2018-11-04 20:35 | disposition home or self-care (01) ==
LOC: ED 20:29
DX: L03.115 Cellulitis of right lower limb (principal); L03.116 Cellulitis of left lower limb; E11.10 Type 2 diabetes mellitus with ketoacidosis without coma; I11.0 Hypertensive heart disease with heart failure; I50.9 Heart failure, unspecified; I48.91 Unspecified atrial fibrillation; F17.200 Nicotine dependence, unspecified, uncomplicated; E11.22 Type 2 diabetes mellitus with diabetic chronic kidney disease; N18.9 Chronic kidney disease, unspecified; Z72.9 Problem related to lifestyle, unspecified; Z87.01 Personal history of pneumonia (recurrent)
CPT/HCPCS: 36415; 80053; 83605; 84145; 85025; 85610; 85730; 87040; 93970; 96365; 99284; J0295

== ENCOUNTER 2019-07-21 10:14 | Emergency (ER) | payer OTHER ==
[~2019-07-21] VITALS: Ht 177.8 cm; Wt 116.0 kg
[~2019-07-21 10:14] MED LIST changes: +CLAR-36 PO; -CLAR500T PO
--- NOTE | 2019-07-21 10:25 | NUR ---
PT BROUGHT FROM [facility] FOR LOW SODIUM LEVEL FOUND IN LABWORK , PT WAS ADMITTED TO [facility] FOR SAME PROBLEM LAST WEEK. PT STATES ONLY SYMPTOM IS LIGHT HEADEDNESS THAT HE HAS HAD "FOR A WHILE". JESSICA AT BEDSIDE. EKG TAKEN BY EDT ON ARRIVAL. REPORT GIVEN TO PRIMARY RN LIVAN.
[2019-07-21] MEDS ORDERED: SODIUM CHLORIDE FLUSH 10ML SYR IVF ONE (10:30)
--- NOTE | 2019-07-21 10:44 | NUR ---
PT FROM [facility] WITH DEPUTY TRANSPORT. PT WITH LOW SODIUM PER [facility] Na+ = LESS THAN 120 ON SUNDAY. PT WITH C/O GEN MALIASE. PER RN AT [facility] PT WAS ADMITTED LAST WEEK TO [facility] FOR SOKIUM LESS THAN 110. WAS TREATED AND D/C WITH SODIUM LEVEL OF 131. PER [facility] RN PT WAS RPT TO HAVE URINARY RETENTION WHILE AT [facility] AND WAS STARTED ON TAMSULOSIN AND FINASTERIDE AND WILL HAVE AN OUT PT URINARY CONSULT. DR. WYMAN AT BEDSIDE, US OF BLADDER SHOWS NO RETETION AT THIS TIME. PT DENIES ANY PAIN. PIV EST AND LABS DRAWN, PT ON , CALL LIGHT W/I REACH, DEPUTY AT BEDSIDE.
[2019-07-21] MEDS ORDERED: FINA1TAB16 PO (10:55)
[2019-07-21] MEDS ORDERED: AMLO10TA8 PO (10:55)
[2019-07-21] MEDS ORDERED: TAMS-11 PO (10:55)
[2019-07-21] MEDS ORDERED: LISI-167 PO (10:55)
[2019-07-21] MEDS ORDERED: ARIP30TA4 PO (10:55)
[2019-07-21 10:58] LABS: BASOPHILS # (AUTO) 0.03 x10^3/uL (0-0.1); BASOPHILS % (AUTO) 0 % (0-1); EOSINOPHILS % (AUTO) 3 % (1-7); LYMPHOCYTES % (AUTO) 21 % (22-44); MD NO; MEAN CORPUSCULAR HEMOGLOBIN 30.5 pg (27.5-34.5); MEAN CORPUSCULAR HGB CONC 32.4 g/dL (33.2-36.2); MEAN PLATELET VOLUME 5.6 fL (7.4-10.4); MONOCYTES % (AUTO) 10 % (2-9); NEUTROPHILS # (AUTO) 4.18 x10^3/uL (1.8-6.8); NEUTROPHILS % (AUTO) 66 % (42-75); PLATELET COUNT 527 x10^3/uL (130-400); RED BLOOD COUNT 4.95 x10^6/uL (4.38-5.82); RED CELL DISTRIBUTION WIDTH 14.4 % (9.4-14.8)
--- NOTE | 2019-07-21 10:58 | NUR ---
PT AWARE OF NEED TO PROVIDE URINE SAMPLE. URINAL AT BEDSIDE.
[2019-07-21 11:02] LABS: INTERNATIONAL NORMALIZED RATIO 1.01 (0.93-1.1); PROTHROMBIN TIME 10.6 Seconds (9.6-11.5)
[2019-07-21 11:08] LABS: ALBUMIN 3.8 g/dL (3.4-5.0); ANION GAP 9 mmol/L (5-15); CHLORIDE 101 mmol/L (98-107)
[2019-07-21 11:14] LABS: ALANINE AMINOTRANSFERASE 26 U/L (12-78); ALKALINE PHOSPHATASE 112 U/L (45-117); BILIRUBIN,TOTAL 0.2 mg/dL (0.2-1.0); CREATININE 0.92 mg/dL (0.7-1.3); T4 (THYROXINE) 10.6 mcg/dL (4.5-12.1); TOTAL PROTEIN 8.1 g/dL (6.4-8.2); TROPONIN I < 0.015 ng/mL (0.000-0.045)
[2019-07-21 12:56] VITALS: BP 122/65
--- NOTE | 2019-07-21 13:00 | NUR ---
PT OOB TO STAND AND URINATE. URINE COLLECTED AND SENT TO LAB
[2019-07-21 13:40] LABS: MICROSCOPIC NOT IND
[2019-07-21 13:49] LABS: CULTURE INDICATED? NO
--- NOTE | 2019-07-21 13:59 | NUR ---
Patient/Caregiver given discharge instructions and they have confirmed that they understand the instructions. Patient ambulatory with steady gait.
== END 2019-07-21 14:00 | disposition home or self-care (01) ==
LOC: ED 13:54
DX: E87.1 Hypo-osmolality and hyponatremia (principal); R42 Dizziness and giddiness; I11.0 Hypertensive heart disease with heart failure; I50.9 Heart failure, unspecified; E11.10 Type 2 diabetes mellitus with ketoacidosis without coma; I48.91 Unspecified atrial fibrillation; Z87.01 Personal history of pneumonia (recurrent)
CPT/HCPCS: 36415; 71045; 80053; 81003; 83605; 83735; 83880; 84436; 84443; 84484; 85025; 85610; 93005; 99284

== ENCOUNTER 2019-08-02 11:39 | Emergency (ER) | payer SELFPAY ==
[~2019-08-02] VITALS: Ht 177.8 cm; Wt 105.0 kg
[~2019-08-02 11:39] MED LIST changes: +AMLO10TA8 PO; +ARIP30TA4 PO; +FINA1TAB16 PO; +TAMS-11 PO
[2019-08-02 11:43] VITALS: BP 102/61
--- NOTE | 2019-08-02 11:47 | NUR ---
THIS IS A 54 YO M BIB [facility] FROM [facility]. PATIENT WAS TRYING TO BE ADMITTED TO FACILITY BUT [facility] REFUSED HIM DUE TO NOT BEING ORIENTED. PATIENT FELL UPON LEAVING FACILITY AND REPORTS LOSS OF CONCIOUSNESS. PATIENT IS A&OX4 AT THIS TIME. RESPIRATIONS ARE EVEN AND UNLABORED. PATIENT IS IN NO ACUTE DISTRESS. PATIENT RESTING ON GURNEY BEING EVALUATED BY . DENIES FURTHER NEEDS AT THIS TIME.
--- NOTE | 2019-08-02 14:11 | NUR ---
PATIENT SLEEPING ON GURNEY. CHEST RISE AND FALL OBSERVED.
--- NOTE | 2019-08-02 15:05 | NUR ---
PATIENT AMBULATED TO THE BATHROOM WITH AN UNSTEADY GAIT, RETURNED TO [facility]. GIVEN [facility] PER REQUEST.
--- NOTE | 2019-08-02 17:47 | NUR ---
PATIENT AMBULATED TO THE BATHROOM WITH A STEADY GAIT.
== END 2019-08-02 17:49 | disposition home or self-care (01) ==
LOC: MERGE 13:56 → ED 13:56
DX: S09.8XXA Other specified injuries of head, initial encounter (principal); F10.129 Alcohol abuse with intoxication, unspecified; F17.200 Nicotine dependence, unspecified, uncomplicated; W19.XXXA Unspecified fall, initial encounter; Y93.89 Activity, other specified; Y92.89 Other specified places as the place of occurrence of the external cause; Y99.8 Other external cause status
CPT/HCPCS: 70450; 72125; 99284

== ENCOUNTER 2019-10-20 21:48 | Inpatient (IN) | payer OTHER ==
[~2019-10-20] VITALS: Ht 177.8 cm; Wt 132.7 kg
[~2019-10-20 21:48] MED LIST changes: +CLAR-14 PO; -CLAR-36 PO
[2019-10-20] MEDS ORDERED: MORPHINE SULFATE 4 MG/ML, 1ML IVPush PRN (22:30)
[2019-10-20] MEDS ORDERED: VANCOMYCIN PER PHARMACY MC ONE (22:30)
[2019-10-20] MEDS ORDERED: AMPICILLIN/SULBACTAM 3 GM in SODIUM CHLORIDE 0.9% 100 ML IV ONE (22:30)
[2019-10-20] MEDS ORDERED: SODIUM CHLORIDE 0.9% 1,000ML IVBOLUS ONE (22:30)
[2019-10-20] MEDS ORDERED: PLEASE ENTER HEIGHT AND WEIGHT MC SCH (22:30)
[2019-10-20] MEDS ORDERED: SODIUM CHLORIDE FLUSH 10ML SYR IVF ONE (22:30)
[2019-10-20] MEDS ORDERED: MORPHINE SULFATE 4 MG/ML, 1ML ONE (22:32)
[2019-10-20 22:49] LABS: MEAN CORPUSCULAR HEMOGLOBIN 28.9 pg (27.5-34.5); MEAN CORPUSCULAR HGB CONC 33.4 g/dL (33.2-36.2); MEAN CORPUSCULAR VOLUME 86.5 fL (81-97); PLATELET COUNT 402 x10^3/uL (130-400); RED BLOOD COUNT 4.47 x10^6/uL (4.38-5.82); RED CELL DISTRIBUTION WIDTH 16.8 % (9.4-14.8)
[2019-10-20 22:58] LABS: ALANINE AMINOTRANSFERASE 18 U/L (12-78); ALBUMIN 2.4 g/dL (3.4-5.0); ANION GAP 8 mmol/L (5-15); CALCIUM 8.2 mg/dL (8.5-10.1); CHLORIDE 98 mmol/L (98-107); CREATININE 2.08 mg/dL (0.7-1.3)
[2019-10-20 23:05] LABS: ALKALINE PHOSPHATASE 125 U/L (45-117); BASOPHILS # (AUTO) 0.01 x10^3/uL (0-0.1); BASOPHILS % (AUTO) 0 % (0-1); BILIRUBIN,TOTAL 0.1 mg/dL (0.2-1.0); EOSINOPHILS % (AUTO) 1 % (1-7); LYMPHOCYTES # (AUTO) 1.34 x10^3/uL (1-3.4); LYMPHOCYTES % (AUTO) 9 % (22-44); MD SCAN; MONOCYTES # (AUTO) 2.25 x10^3/uL (0.2-0.8); MONOCYTES % (AUTO) 15 % (2-9); NEUTROPHILS # (AUTO) 10.87 x10^3/uL (1.8-6.8); NEUTROPHILS % (AUTO) 75 % (42-75); TOTAL PROTEIN 8.1 g/dL (6.4-8.2)
[2019-10-20] MEDS ORDERED: SODIUM CHLORIDE 0.9% 1,000 ML IV ONE (23:06)
[2019-10-20 23:23] LABS: HCT (SEDRATE) 38.7 % (39.2-51.8)
[2019-10-21] MEDS ORDERED: ACETAMINOPHEN 325 MG TABLET PO PRN (00:30)
[2019-10-21] MEDS ORDERED: TEMAZEPAM 15 MG CAPSULE PO PRN (00:30)
[2019-10-21] MEDS ORDERED: LIDODERM 5% PATCH TD PRN (00:30)
[2019-10-21] MEDS ORDERED: DOCUSATE 100 MG CAPSULE PO PRN (00:30)
[2019-10-21] MEDS ORDERED: PHARMACY MAY ADJ FOR RENAL FX MC PRN (00:30)
[2019-10-21] MEDS ORDERED: ONDANSETRON ODT 4 MG PO PRN (00:30)
--- NOTE | 2019-10-21 00:37 | NUR ---
TASK RN: CANDELARIO REQUESTED FROM PHARMACY
[2019-10-21] MEDS ORDERED: VANCOMYCIN 2,000 MG in SODIUM CHLORIDE 0.9% 500 ML IV ONE ×2 (01:00→02:00)
[2019-10-21] MEDS: HEPARIN 5,000 UNITS/ML, 1ML SQ SCH ×3 (02:05→18:31)
[2019-10-21] MEDS: NICOTINE 14MG/24 HR PATCH.TD24 TD SCH (02:05)
[2019-10-21] MEDS: AMPICILLIN/SULBACTAM 3 GM in SODIUM CHLORIDE 0.9% 100 ML IV SCH ×3 (04:44→18:31)
[2019-10-21 07:02] VITALS: BP 119/70
[2019-10-21] MEDS ORDERED: LINEZOLID PMX 600MG/300ML 300 ML IV SCH (07:30)
[2019-10-21] MEDS: TEMPLATE NON-FORMULARY MED. (Finasteride** 1 MG) PO SCH (09:00)
[2019-10-21] MEDS: LINEZOLID PMX 600MG/300ML 300 ML IV SCH ×2 (09:54→20:46)
[2019-10-21] MEDS: TAMSULOSIN 0.4 MG CAP.ER.24H PO SCH (09:54)
[2019-10-21] MEDS: AMLODIPINE 5 MG TABLET PO SCH (09:54)
[2019-10-21] MEDS: ARIPIPRAZOLE 15 MG TABLET PO SCH (09:55)
[2019-10-21] MEDS ORDERED: GADOTERATE 10 MMOL/20 ML SYR ONE (09:59)
[2019-10-21] MEDS: LACTATED RINGERS 1,000 ML IV SCH (13:11)
[2019-10-21 13:40] VITALS: BP 127/72
[2019-10-21 19:54] VITALS: BP 137/76
[2019-10-22] MEDS: NICOTINE 14MG/24 HR PATCH.TD24 TD SCH (00:36)
[2019-10-22] MEDS: HEPARIN 5,000 UNITS/ML, 1ML SQ SCH ×3 (00:36→17:00)
[2019-10-22] MEDS: AMPICILLIN/SULBACTAM 3 GM in SODIUM CHLORIDE 0.9% 100 ML IV SCH ×4 (00:36→18:33)
[2019-10-22 00:41] VITALS: BP 161/78
[2019-10-22] MEDS: LACTATED RINGERS 1,000 ML IV SCH ×3 (03:00→22:40)
[2019-10-22 05:18] LABS: BASOPHILS # (AUTO) 0.07 x10^3/uL (0-0.1); BASOPHILS % (AUTO) 1 % (0-1); EOSINOPHILS # (AUTO) 0.09 x10^3/uL (0-0.4); EOSINOPHILS % (AUTO) 1 % (1-7); LYMPHOCYTES # (AUTO) 0.82 x10^3/uL (1-3.4); LYMPHOCYTES % (AUTO) 8 % (22-44); MD NO; MEAN CORPUSCULAR HEMOGLOBIN 29.3 pg (27.5-34.5); MEAN CORPUSCULAR HGB CONC 33.2 g/dL (33.2-36.2); MEAN CORPUSCULAR VOLUME 88.2 fL (81-97); MEAN PLATELET VOLUME 6.6 fL (7.4-10.4); MONOCYTES # (AUTO) 1.35 x10^3/uL (0.2-0.8); MONOCYTES % (AUTO) 13 % (2-9); NEUTROPHILS # (AUTO) 7.99 x10^3/uL (1.8-6.8); NEUTROPHILS % (AUTO) 78 % (42-75); PLATELET COUNT 422 x10^3/uL (130-400); RED BLOOD COUNT 4.04 x10^6/uL (4.38-5.82); RED CELL DISTRIBUTION WIDTH 16.3 % (9.4-14.8)
[2019-10-22 05:27] LABS: ANION GAP 11 mmol/L (5-15); CALCIUM 7.8 mg/dL (8.5-10.1); CHLORIDE 101 mmol/L (98-107); CREATININE 1.14 mg/dL (0.7-1.3)
[2019-10-22 07:29] VITALS: BP 147/80
[2019-10-22] MEDS: TAMSULOSIN 0.4 MG CAP.ER.24H PO SCH (08:01)
[2019-10-22] MEDS: AMLODIPINE 5 MG TABLET PO SCH (08:02)
[2019-10-22] MEDS: ARIPIPRAZOLE 15 MG TABLET PO SCH (08:02)
[2019-10-22] MEDS: LISINOPRIL 10 MG TABLET PO SCH ×2 (08:02→20:34)
[2019-10-22] MEDS: LINEZOLID PMX 600MG/300ML 300 ML IV SCH ×2 (08:03→20:33)
[2019-10-22] MEDS: TEMPLATE NON-FORMULARY MED. (Finasteride** 1 MG) PO SCH (09:00)
[2019-10-22] MEDS: LIDODERM 5% PATCH TD SCH (14:20)
[2019-10-22 14:32] VITALS: BP 147/85
[2019-10-22 20:57] VITALS: BP 149/76
[2019-10-23 00:01] VITALS: BP 159/84
[2019-10-23] MEDS: HEPARIN 5,000 UNITS/ML, 1ML SQ SCH ×3 (00:20→16:30)
[2019-10-23] MEDS: AMPICILLIN/SULBACTAM 3 GM in SODIUM CHLORIDE 0.9% 100 ML IV SCH ×5 (00:20→19:27)
[2019-10-23] MEDS: NICOTINE 14MG/24 HR PATCH.TD24 TD SCH (00:22)
[2019-10-23 06:42] LABS: BASOPHILS # (AUTO) 0.02 x10^3/uL (0-0.1); BASOPHILS % (AUTO) 0 % (0-1); EOSINOPHILS # (AUTO) 0.14 x10^3/uL (0-0.4); EOSINOPHILS % (AUTO) 2 % (1-7); LYMPHOCYTES % (AUTO) 12 % (22-44); MD NO; MEAN CORPUSCULAR HEMOGLOBIN 28.8 pg (27.5-34.5); MEAN CORPUSCULAR HGB CONC 32.8 g/dL (33.2-36.2); MEAN PLATELET VOLUME 6.8 fL (7.4-10.4); MONOCYTES # (AUTO) 1.26 x10^3/uL (0.2-0.8); MONOCYTES % (AUTO) 17 % (2-9); NEUTROPHILS # (AUTO) 5.07 x10^3/uL (1.8-6.8); NEUTROPHILS % (AUTO) 69 % (42-75); PLATELET COUNT 446 x10^3/uL (130-400); RED BLOOD COUNT 4.25 x10^6/uL (4.38-5.82); RED CELL DISTRIBUTION WIDTH 16.8 % (9.4-14.8)
[2019-10-23 06:51] LABS: ALANINE AMINOTRANSFERASE 15 U/L (12-78); ALBUMIN 1.8 g/dL (3.4-5.0); ANION GAP 7 mmol/L (5-15); CALCIUM 7.8 mg/dL (8.5-10.1); CHLORIDE 100 mmol/L (98-107); CREATININE 1.04 mg/dL (0.7-1.3)
[2019-10-23 06:53] LABS: ALKALINE PHOSPHATASE 100 U/L (45-117); BILIRUBIN,TOTAL 0.1 mg/dL (0.2-1.0); TOTAL PROTEIN 7.4 g/dL (6.4-8.2)
[2019-10-23] MEDS: TEMPLATE NON-FORMULARY MED. (Finasteride** 1 MG) PO SCH (07:31)
[2019-10-23 08:35] VITALS: BP 151/87
[2019-10-23] MEDS: LINEZOLID PMX 600MG/300ML 300 ML IV SCH ×2 (08:47→20:38)
[2019-10-23] MEDS: SODIUM CHLORIDE 0.9% 1,000 ML IV SCH ×2 (08:47→20:38)
[2019-10-23] MEDS: ARIPIPRAZOLE 15 MG TABLET PO SCH (08:48)
[2019-10-23] MEDS: LISINOPRIL 20 MG TABLET PO SCH ×2 (08:48→20:38)
[2019-10-23] MEDS: AMLODIPINE 5 MG TABLET PO SCH (08:48)
[2019-10-23] MEDS: TAMSULOSIN 0.4 MG CAP.ER.24H PO SCH (08:48)
[2019-10-23] MEDS: LIDODERM 5% PATCH TD SCH (12:32)
[2019-10-23 15:12] VITALS: BP 139/81
[2019-10-23 18:15] LABS: OSMOLALITY,URINE 145 mOsm/kg (500-850)
[2019-10-23 21:19] VITALS: BP 144/81
[2019-10-24] MEDS: AMPICILLIN/SULBACTAM 3 GM in SODIUM CHLORIDE 0.9% 100 ML IV SCH ×4 (01:13→22:24)
[2019-10-24] MEDS: HEPARIN 5,000 UNITS/ML, 1ML SQ SCH ×3 (01:13→16:30)
[2019-10-24] MEDS: NICOTINE 14MG/24 HR PATCH.TD24 TD SCH (01:13)
[2019-10-24 03:26] VITALS: BP 146/78
[2019-10-24 05:44] LABS: BASOPHILS # (AUTO) 0.03 x10^3/uL (0-0.1); BASOPHILS % (AUTO) 0 % (0-1); EOSINOPHILS # (AUTO) 0.18 x10^3/uL (0-0.4); EOSINOPHILS % (AUTO) 2 % (1-7); LYMPHOCYTES % (AUTO) 14 % (22-44); MD NO; MEAN CORPUSCULAR HEMOGLOBIN 28.8 pg (27.5-34.5); MEAN CORPUSCULAR VOLUME 87.3 fL (81-97); MEAN PLATELET VOLUME 6.7 fL (7.4-10.4); MONOCYTES # (AUTO) 1.15 x10^3/uL (0.2-0.8); MONOCYTES % (AUTO) 15 % (2-9); NEUTROPHILS # (AUTO) 5.26 x10^3/uL (1.8-6.8); NEUTROPHILS % (AUTO) 68 % (42-75); PLATELET COUNT 481 x10^3/uL (130-400); RED BLOOD COUNT 4.38 x10^6/uL (4.38-5.82); RED CELL DISTRIBUTION WIDTH 17.1 % (9.4-14.8)
[2019-10-24 05:52] LABS: ALANINE AMINOTRANSFERASE 26 U/L (12-78); ALBUMIN 1.8 g/dL (3.4-5.0); ANION GAP 6 mmol/L (5-15); CALCIUM 7.8 mg/dL (8.5-10.1); CHLORIDE 101 mmol/L (98-107); CREATININE 0.92 mg/dL (0.7-1.3)
[2019-10-24 05:55] LABS: ALKALINE PHOSPHATASE 172 U/L (45-117); BILIRUBIN,TOTAL 0.1 mg/dL (0.2-1.0); TOTAL PROTEIN 7.6 g/dL (6.4-8.2)
[2019-10-24 07:25] VITALS: BP 131/78
[2019-10-24] MEDS: TEMPLATE NON-FORMULARY MED. (Finasteride** 1 MG) PO SCH (09:00)
[2019-10-24] MEDS: TAMSULOSIN 0.4 MG CAP.ER.24H PO SCH (09:30)
[2019-10-24] MEDS: LISINOPRIL 20 MG TABLET PO SCH ×2 (09:30→22:00)
[2019-10-24] MEDS: ARIPIPRAZOLE 15 MG TABLET PO SCH (09:30)
[2019-10-24] MEDS: LINEZOLID PMX 600MG/300ML 300 ML IV SCH ×2 (09:30→23:08)
[2019-10-24] MEDS: AMLODIPINE 5 MG TABLET PO SCH (09:31)
[2019-10-24] MEDS: SODIUM CHLORIDE 0.9% 1,000 ML IV SCH (09:32)
[2019-10-24] MEDS ORDERED: DIPHENHYDRAMINE 25 MG CAPSULE ONE (09:45)
[2019-10-24] MEDS ORDERED: DIPHENHYDRAMINE 25 MG CAPSULE PO PRN (10:00)
[2019-10-24 12:30] VITALS: BP 149/84
[2019-10-24] MEDS: LIDODERM 5% PATCH TD SCH (13:00)
[2019-10-24 21:16] VITALS: BP 159/84
[2019-10-24] MEDS: OXYcodone/APAP 5/325MG TABLET PO PRN (22:42)
[2019-10-25] MEDS: HEPARIN 5,000 UNITS/ML, 1ML SQ SCH ×4 (00:18→18:19)
[2019-10-25] MEDS: NICOTINE 14MG/24 HR PATCH.TD24 TD SCH (00:18)
[2019-10-25 02:39] VITALS: BP 157/81
[2019-10-25] MEDS: SODIUM CHLORIDE 0.9% 1,000 ML IV SCH (03:19)
[2019-10-25] MEDS: AMPICILLIN/SULBACTAM 3 GM in SODIUM CHLORIDE 0.9% 100 ML IV SCH ×5 (04:16→22:08)
[2019-10-25] MEDS: OXYcodone/APAP 5/325MG TABLET PO PRN ×2 (04:43→16:33)
[2019-10-25 05:02] LABS: BASOPHILS # (AUTO) 0.03 x10^3/uL (0-0.1); BASOPHILS % (AUTO) 0 % (0-1); EOSINOPHILS # (AUTO) 0.25 x10^3/uL (0-0.4); EOSINOPHILS % (AUTO) 3 % (1-7); LYMPHOCYTES % (AUTO) 18 % (22-44); MD NO; MEAN CORPUSCULAR HEMOGLOBIN 28.4 pg (27.5-34.5); MEAN CORPUSCULAR HGB CONC 32.6 g/dL (33.2-36.2); MEAN CORPUSCULAR VOLUME 87.2 fL (81-97); MEAN PLATELET VOLUME 6.6 fL (7.4-10.4); MONOCYTES # (AUTO) 1.15 x10^3/uL (0.2-0.8); MONOCYTES % (AUTO) 15 % (2-9); NEUTROPHILS # (AUTO) 4.77 x10^3/uL (1.8-6.8); NEUTROPHILS % (AUTO) 63 % (42-75); PLATELET COUNT 526 x10^3/uL (130-400); RED BLOOD COUNT 4.36 x10^6/uL (4.38-5.82); RED CELL DISTRIBUTION WIDTH 16.4 % (9.4-14.8)
[2019-10-25 05:14] LABS: ALANINE AMINOTRANSFERASE 18 U/L (12-78); ALBUMIN 1.8 g/dL (3.4-5.0); ANION GAP 5 mmol/L (5-15); CALCIUM 8.2 mg/dL (8.5-10.1); CHLORIDE 104 mmol/L (98-107)
[2019-10-25 05:21] LABS: ALKALINE PHOSPHATASE 143 U/L (45-117); BILIRUBIN,TOTAL 0.2 mg/dL (0.2-1.0); CREATININE 1.16 mg/dL (0.7-1.3); TOTAL PROTEIN 7.5 g/dL (6.4-8.2)
[2019-10-25 07:44] VITALS: BP 150/80
[2019-10-25] MEDS ORDERED: SODIUM POLYSTYRENE SULFONATE ORAL SUSP PO ONE ×2 (08:00→13:00)
[2019-10-25] MEDS ORDERED: SODIUM CHLORIDE 0.9% 1,000 ML IV SCH (10:00)
[2019-10-25] MEDS: TAMSULOSIN 0.4 MG CAP.ER.24H PO SCH ×2 (10:18→16:32)
[2019-10-25] MEDS: TEMPLATE NON-FORMULARY MED. (Finasteride** 1 MG) PO SCH (10:19)
[2019-10-25] MEDS: ARIPIPRAZOLE 15 MG TABLET PO SCH ×2 (10:19→16:32)
[2019-10-25] MEDS: AMLODIPINE 5 MG TABLET PO SCH ×2 (10:19→16:32)
[2019-10-25 11:18] LABS: ANION GAP 7 mmol/L (5-15); CALCIUM 7.8 mg/dL (8.5-10.1); CHLORIDE 106 mmol/L (98-107); CREATININE 1.15 mg/dL (0.7-1.3)
[2019-10-25] MEDS: LINEZOLID PMX 600MG/300ML 300 ML IV SCH ×2 (11:48→22:45)
[2019-10-25 12:52] VITALS: BP 147/72
[2019-10-25] MEDS ORDERED: PNEUMOC 13-VALENT VACC, 0.5 ML IM-VACC ONE ×2 (13:30→16:00)
[2019-10-25] MEDS ORDERED: MORPHINE SULFATE 4 MG/ML, 1ML IVPush PRN (14:00)
[2019-10-25] MEDS: CLINDAMYCIN PMX 900MG/50ML 50 ML IVPB SCH ×2 (15:04→20:46)
[2019-10-25 16:11] LABS: ANION GAP 6 mmol/L (5-15); CALCIUM 7.9 mg/dL (8.5-10.1); CHLORIDE 107 mmol/L (98-107); CREATININE 1.07 mg/dL (0.7-1.3)
[2019-10-25 19:57] VITALS: BP 157/84
[2019-10-26 00:25] VITALS: BP 161/92
[2019-10-26] MEDS: NICOTINE 14MG/24 HR PATCH.TD24 TD SCH (00:34)
[2019-10-26] MEDS: HEPARIN 5,000 UNITS/ML, 1ML SQ SCH ×3 (03:03→20:42)
[2019-10-26] MEDS: CLINDAMYCIN PMX 900MG/50ML 50 ML IVPB SCH ×4 (03:06→20:58)
[2019-10-26] MEDS: AMPICILLIN/SULBACTAM 3 GM in SODIUM CHLORIDE 0.9% 100 ML IV SCH ×4 (04:08→22:22)
[2019-10-26 06:29] LABS: ALANINE AMINOTRANSFERASE 15 U/L (12-78); ALBUMIN 1.8 g/dL (3.4-5.0); ANION GAP 6 mmol/L (5-15); CHLORIDE 110 mmol/L (98-107); CREATININE 0.98 mg/dL (0.7-1.3)
[2019-10-26 06:32] LABS: ALKALINE PHOSPHATASE 121 U/L (45-117); BILIRUBIN,TOTAL < 0.1 mg/dL (0.2-1.0); TOTAL PROTEIN 7.4 g/dL (6.4-8.2)
[2019-10-26 07:18] VITALS: BP 173/91
[2019-10-26] MEDS: TAMSULOSIN 0.4 MG CAP.ER.24H PO SCH (08:25)
[2019-10-26] MEDS: AMLODIPINE 10 MG TAB PO SCH (08:25)
[2019-10-26] MEDS: ARIPIPRAZOLE 15 MG TABLET PO SCH (08:26)
[2019-10-26] MEDS: TEMPLATE NON-FORMULARY MED. (Finasteride** 1 MG) PO SCH (08:26)
[2019-10-26] MEDS: OXYcodone/APAP 5/325MG TABLET PO PRN ×2 (08:50→21:27)
[2019-10-26] MEDS ORDERED: CHLORTHALIDONE 25 MG TABLET PO SCH (09:00)
[2019-10-26 10:57] VITALS: BP 168/99
[2019-10-26] MEDS: hydrALAzine 20 MG/ML, 1ML IV PRN (11:28)
[2019-10-26 14:38] VITALS: BP 141/67
[2019-10-26 18:29] VITALS: BP 160/80
[2019-10-26 20:33] VITALS: BP 135/64
[2019-10-27 00:04] VITALS: BP 158/75
[2019-10-27] MEDS: NICOTINE 14MG/24 HR PATCH.TD24 TD SCH (00:29)
[2019-10-27] MEDS: CLINDAMYCIN PMX 900MG/50ML 50 ML IVPB SCH ×4 (02:46→21:51)
[2019-10-27] MEDS: AMPICILLIN/SULBACTAM 3 GM in SODIUM CHLORIDE 0.9% 100 ML IV SCH ×4 (03:48→22:36)
[2019-10-27] MEDS: HEPARIN 5,000 UNITS/ML, 1ML SQ SCH ×3 (04:15→21:52)
[2019-10-27 05:30] LABS: BASOPHILS # (AUTO) 0.03 x10^3/uL (0-0.1); BASOPHILS % (AUTO) 0 % (0-1); EOSINOPHILS # (AUTO) 0.32 x10^3/uL (0-0.4); EOSINOPHILS % (AUTO) 3 % (1-7); LYMPHOCYTES % (AUTO) 10 % (22-44); MD NO; MEAN CORPUSCULAR HEMOGLOBIN 28.6 pg (27.5-34.5); MEAN CORPUSCULAR HGB CONC 33.1 g/dL (33.2-36.2); MEAN CORPUSCULAR VOLUME 86.1 fL (81-97); MEAN PLATELET VOLUME 6.6 fL (7.4-10.4); MONOCYTES % (AUTO) 12 % (2-9); NEUTROPHILS # (AUTO) 7.82 x10^3/uL (1.8-6.8); NEUTROPHILS % (AUTO) 74 % (42-75); PLATELET COUNT 512 x10^3/uL (130-400); RED BLOOD COUNT 4.23 x10^6/uL (4.38-5.82); RED CELL DISTRIBUTION WIDTH 16.9 % (9.4-14.8)
[2019-10-27 05:43] LABS: HCT (SEDRATE) 36.4 % (39.2-51.8)
[2019-10-27 05:45] LABS: ALANINE AMINOTRANSFERASE 16 U/L (12-78); ALBUMIN 1.9 g/dL (3.4-5.0); ANION GAP 8 mmol/L (5-15); CALCIUM 7.9 mg/dL (8.5-10.1); CHLORIDE 111 mmol/L (98-107); CREATININE 1.14 mg/dL (0.7-1.3)
[2019-10-27 05:54] LABS: ALKALINE PHOSPHATASE 130 U/L (45-117); BILIRUBIN,TOTAL 0.2 mg/dL (0.2-1.0); TOTAL PROTEIN 7.5 g/dL (6.4-8.2)
[2019-10-27 06:08] VITALS: BP 175/92
[2019-10-27 07:42] VITALS: BP 168/97
[2019-10-27] MEDS: FUROSEMIDE 40 MG TABLET PO SCH ×2 (08:35→16:44)
[2019-10-27] MEDS: AMLODIPINE 10 MG TAB PO SCH (08:35)
[2019-10-27] MEDS: TAMSULOSIN 0.4 MG CAP.ER.24H PO SCH (08:35)
[2019-10-27] MEDS: TEMPLATE NON-FORMULARY MED. (Finasteride** 1 MG) PO SCH (08:36)
[2019-10-27] MEDS: ARIPIPRAZOLE 15 MG TABLET PO SCH (08:36)
[2019-10-27] MEDS: OXYcodone/APAP 5/325MG TABLET PO PRN (08:52)
[2019-10-27] MEDS ORDERED: MAGNESIUM CITRATE 300ML ORAL SOL PO PRN (11:00)
[2019-10-27] MEDS: MAGNESIUM HYDROXIDE 8%, 30ML UDC PO SCH (11:42)
[2019-10-27] MEDS: DOCUSATE 100 MG CAPSULE PO SCH ×2 (11:42→21:52)
[2019-10-27 14:52] VITALS: BP 152/82
[2019-10-27 19:01] VITALS: BP 158/90
[2019-10-28 00:55] VITALS: BP 159/85
[2019-10-28] MEDS: NICOTINE 14MG/24 HR PATCH.TD24 TD SCH (03:31)
[2019-10-28] MEDS: CLINDAMYCIN PMX 900MG/50ML 50 ML IVPB SCH ×4 (03:31→21:19)
[2019-10-28] MEDS: OXYcodone/APAP 5/325MG TABLET PO PRN ×2 (03:40→08:49)
[2019-10-28] MEDS: AMPICILLIN/SULBACTAM 3 GM in SODIUM CHLORIDE 0.9% 100 ML IV SCH ×4 (04:45→22:30)
[2019-10-28 05:11] LABS: BASOPHILS # (AUTO) 0.01 x10^3/uL (0-0.1); BASOPHILS % (AUTO) 0 % (0-1); EOSINOPHILS # (AUTO) 0.28 x10^3/uL (0-0.4); EOSINOPHILS % (AUTO) 3 % (1-7); LYMPHOCYTES # (AUTO) 1.18 x10^3/uL (1-3.4); LYMPHOCYTES % (AUTO) 11 % (22-44); MD NO; MEAN CORPUSCULAR HEMOGLOBIN 28.3 pg (27.5-34.5); MEAN CORPUSCULAR HGB CONC 32.6 g/dL (33.2-36.2); MEAN CORPUSCULAR VOLUME 86.8 fL (81-97); MEAN PLATELET VOLUME 6.6 fL (7.4-10.4); MONOCYTES # (AUTO) 1.21 x10^3/uL (0.2-0.8); MONOCYTES % (AUTO) 11 % (2-9); NEUTROPHILS # (AUTO) 8.22 x10^3/uL (1.8-6.8); NEUTROPHILS % (AUTO) 75 % (42-75); PLATELET COUNT 510 x10^3/uL (130-400); RED BLOOD COUNT 4.17 x10^6/uL (4.38-5.82); RED CELL DISTRIBUTION WIDTH 17.2 % (9.4-14.8)
[2019-10-28 05:23] LABS: ALBUMIN 1.8 g/dL (3.4-5.0); ANION GAP 8 mmol/L (5-15); CALCIUM 7.9 mg/dL (8.5-10.1); CHLORIDE 108 mmol/L (98-107)
[2019-10-28 05:26] LABS: ALANINE AMINOTRANSFERASE 14 U/L (12-78); ALKALINE PHOSPHATASE 117 U/L (45-117); BILIRUBIN,TOTAL 0.3 mg/dL (0.2-1.0); CREATININE 1.23 mg/dL (0.7-1.3); TOTAL PROTEIN 7.4 g/dL (6.4-8.2)
[2019-10-28] MEDS: HEPARIN 5,000 UNITS/ML, 1ML SQ SCH ×3 (06:09→22:31)
[2019-10-28 07:53] VITALS: BP 168/83
[2019-10-28] MEDS: AMLODIPINE 10 MG TAB PO SCH (08:48)
[2019-10-28] MEDS: DOCUSATE 100 MG CAPSULE PO SCH ×2 (08:48→21:19)
[2019-10-28] MEDS: MAGNESIUM HYDROXIDE 8%, 30ML UDC PO SCH (08:48)
[2019-10-28] MEDS: ARIPIPRAZOLE 15 MG TABLET PO SCH (08:48)
[2019-10-28] MEDS: TAMSULOSIN 0.4 MG CAP.ER.24H PO SCH (08:48)
[2019-10-28] MEDS: TEMPLATE NON-FORMULARY MED. (Finasteride** 1 MG) PO SCH (09:00)
[2019-10-28 13:19] VITALS: BP 144/77
[2019-10-28] MEDS ORDERED: FUROSEMIDE 20 MG TABLET PO SCH (17:00)
[2019-10-28 19:41] VITALS: BP 170/80
[2019-10-29 00:24] VITALS: BP 173/101
[2019-10-29 01:04] VITALS: BP 167/89
[2019-10-29] MEDS: NICOTINE 14MG/24 HR PATCH.TD24 TD SCH (01:05)
[2019-10-29] MEDS: CLINDAMYCIN PMX 900MG/50ML 50 ML IVPB SCH ×4 (03:04→21:21)
[2019-10-29] MEDS: AMPICILLIN/SULBACTAM 3 GM in SODIUM CHLORIDE 0.9% 100 ML IV SCH ×4 (04:03→22:33)
[2019-10-29 05:23] LABS: MEAN CORPUSCULAR HEMOGLOBIN 28.4 pg (27.5-34.5); MEAN CORPUSCULAR HGB CONC 32.5 g/dL (33.2-36.2); MEAN CORPUSCULAR VOLUME 87.3 fL (81-97); MEAN PLATELET VOLUME 6.5 fL (7.4-10.4); PLATELET COUNT 522 x10^3/uL (130-400); RED BLOOD COUNT 4.49 x10^6/uL (4.38-5.82); RED CELL DISTRIBUTION WIDTH 17.3 % (9.4-14.8)
[2019-10-29 05:32] LABS: ALBUMIN 1.9 g/dL (3.4-5.0); ANION GAP 4 mmol/L (5-15); CALCIUM 8.3 mg/dL (8.5-10.1); CHLORIDE 108 mmol/L (98-107)
[2019-10-29 05:35] LABS: ALANINE AMINOTRANSFERASE 14 U/L (12-78); ALKALINE PHOSPHATASE 112 U/L (45-117); BILIRUBIN,TOTAL 0.2 mg/dL (0.2-1.0)
[2019-10-29 05:53] LABS: MD YES
[2019-10-29 06:01] LABS: EOS#(MANUAL) 0.23 x10^3/uL (0.0-0.4); EOS% (MANUAL) 2 % (1-7); LYMPH#(MANUAL) 1.04 x10^3/uL (1-3.4); LYMPHS% (MANUAL) 9 % (22-44); MONOS#(MANUAL) 1.04 x10^3/uL (0.3-2.7); MONOS% (MANUAL) 9 % (2-9); SEGS% (MANUAL) 80 % (42-75)
[2019-10-29 06:02] LABS: <PLATELET ESTIMATE> INCREASED; <PLT MORPHOLOGY> NORMAL PLT MORPH; ANISOCYTOSIS 1+
[2019-10-29] MEDS: HEPARIN 5,000 UNITS/ML, 1ML SQ SCH ×3 (06:07→22:33)
[2019-10-29 07:32] VITALS: BP 183/101
[2019-10-29] MEDS: FUROSEMIDE 80 MG TABLET PO SCH ×2 (08:00→16:49)
[2019-10-29] MEDS ORDERED: SODIUM POLYSTYRENE SULFONATE ORAL SUSP PO ONE ×2 (08:00→14:00)
[2019-10-29] MEDS ORDERED: FUROSEMIDE 40 MG TABLET ONE (08:20)
[2019-10-29] MEDS: TEMPLATE NON-FORMULARY MED. (Finasteride** 1 MG) PO SCH (09:00)
[2019-10-29] MEDS: hydrALAzine 20 MG/ML, 1ML IV PRN ×2 (09:01→18:38)
[2019-10-29] MEDS: DOCUSATE 100 MG CAPSULE PO SCH ×2 (09:01→21:00)
[2019-10-29] MEDS: ARIPIPRAZOLE 15 MG TABLET PO SCH (09:01)
[2019-10-29] MEDS: AMLODIPINE 10 MG TAB PO SCH (09:01)
[2019-10-29] MEDS: TAMSULOSIN 0.4 MG CAP.ER.24H PO SCH (09:01)
[2019-10-29] MEDS: MAGNESIUM HYDROXIDE 8%, 30ML UDC PO SCH (09:01)
[2019-10-29 11:19] LABS: ANION GAP 5 mmol/L (5-15); CALCIUM 8.6 mg/dL (8.5-10.1); CHLORIDE 106 mmol/L (98-107); CREATININE 1.27 mg/dL (0.7-1.3)
[2019-10-29 13:40] VITALS: BP 163/90
[2019-10-29] MEDS: OXYcodone/APAP 5/325MG TABLET PO PRN (16:53)
[2019-10-29 17:58] LABS: CHLORIDE 105 mmol/L (98-107)
[2019-10-29 18:03] LABS: ANION GAP 7 mmol/L (5-15); CALCIUM 8.5 mg/dL (8.5-10.1)
[2019-10-29 18:39] VITALS: BP 174/81
[2019-10-29 20:26] VITALS: BP 155/82
[2019-10-30 00:36] VITALS: BP 145/65
[2019-10-30] MEDS: NICOTINE 14MG/24 HR PATCH.TD24 TD SCH (00:43)
[2019-10-30] MEDS: CLINDAMYCIN PMX 900MG/50ML 50 ML IVPB SCH ×4 (03:06→22:08)
[2019-10-30] MEDS: AMPICILLIN/SULBACTAM 3 GM in SODIUM CHLORIDE 0.9% 100 ML IV SCH ×4 (04:06→23:03)
[2019-10-30 05:45] LABS: BASOPHILS # (AUTO) 0.01 x10^3/uL (0-0.1); BASOPHILS % (AUTO) 0 % (0-1); EOSINOPHILS # (AUTO) 0.36 x10^3/uL (0-0.4); EOSINOPHILS % (AUTO) 3 % (1-7); LYMPHOCYTES % (AUTO) 11 % (22-44); MD NO; MEAN CORPUSCULAR HEMOGLOBIN 28.4 pg (27.5-34.5); MEAN CORPUSCULAR HGB CONC 32.7 g/dL (33.2-36.2); MEAN CORPUSCULAR VOLUME 86.8 fL (81-97); MEAN PLATELET VOLUME 6.7 fL (7.4-10.4); MONOCYTES # (AUTO) 1.44 x10^3/uL (0.2-0.8); MONOCYTES % (AUTO) 13 % (2-9); NEUTROPHILS # (AUTO) 8.03 x10^3/uL (1.8-6.8); NEUTROPHILS % (AUTO) 73 % (42-75); PLATELET COUNT 490 x10^3/uL (130-400)
[2019-10-30 05:51] LABS: ANION GAP 9 mmol/L (5-15); CHLORIDE 106 mmol/L (98-107); CREATININE 1.32 mg/dL (0.7-1.3)
[2019-10-30 05:52] LABS: ALANINE AMINOTRANSFERASE 10 U/L (12-78); ALBUMIN 1.8 g/dL (3.4-5.0)
[2019-10-30 05:54] LABS: ALKALINE PHOSPHATASE 98 U/L (45-117); BILIRUBIN,TOTAL 0.2 mg/dL (0.2-1.0); TOTAL PROTEIN 7.4 g/dL (6.4-8.2)
[2019-10-30] MEDS: HEPARIN 5,000 UNITS/ML, 1ML SQ SCH ×3 (06:15→23:07)
[2019-10-30 07:27] VITALS: BP 160/88
[2019-10-30] MEDS ORDERED: FUROSEMIDE 80 MG TABLET PO SCH (08:00)
[2019-10-30] MEDS: TEMPLATE NON-FORMULARY MED. (Finasteride** 1 MG) PO SCH (08:05)
[2019-10-30] MEDS ORDERED: FUROSEMIDE 40 MG TABLET ONE (08:14)
[2019-10-30] MEDS ORDERED: LABETALOL 100 MG TABLET ONE (08:14)
[2019-10-30] MEDS: AMLODIPINE 10 MG TAB PO SCH (08:16)
[2019-10-30] MEDS: TAMSULOSIN 0.4 MG CAP.ER.24H PO SCH (08:16)
[2019-10-30] MEDS: ARIPIPRAZOLE 15 MG TABLET PO SCH (08:16)
[2019-10-30] MEDS: LABETALOL 100 MG TABLET PO SCH ×2 (08:17→18:00)
[2019-10-30] MEDS: MAGNESIUM HYDROXIDE 8%, 30ML UDC PO SCH (08:17)
[2019-10-30] MEDS: DOCUSATE 100 MG CAPSULE PO SCH ×2 (08:18→21:00)
[2019-10-30] MEDS: OXYcodone/APAP 5/325MG TABLET PO PRN (11:11)
[2019-10-30 13:37] VITALS: BP 126/70
[2019-10-30] MEDS: FUROSEMIDE 40 MG TABLET PO SCH (16:34)
[2019-10-30 16:37] VITALS: BP 142/71
[2019-10-30 18:59] VITALS: BP 115/66
[2019-10-31] MEDS: NICOTINE 14MG/24 HR PATCH.TD24 TD SCH (00:38)
[2019-10-31 00:55] VITALS: BP 155/82
[2019-10-31] MEDS: CLINDAMYCIN PMX 900MG/50ML 50 ML IVPB SCH ×2 (04:02→09:35)
[2019-10-31] MEDS: AMPICILLIN/SULBACTAM 3 GM in SODIUM CHLORIDE 0.9% 100 ML IV SCH ×2 (05:10→10:17)
[2019-10-31 05:45] LABS: MEAN CORPUSCULAR HEMOGLOBIN 28.3 pg (27.5-34.5); MEAN CORPUSCULAR HGB CONC 32.7 g/dL (33.2-36.2); MEAN CORPUSCULAR VOLUME 86.7 fL (81-97); MEAN PLATELET VOLUME 6.7 fL (7.4-10.4); PLATELET COUNT 428 x10^3/uL (130-400); RED BLOOD COUNT 3.83 x10^6/uL (4.38-5.82); RED CELL DISTRIBUTION WIDTH 17.5 % (9.4-14.8)
[2019-10-31 05:47] LABS: HCT (SEDRATE) 33.6 % (39.2-51.8)
[2019-10-31 05:51] LABS: CHLORIDE 101 mmol/L (98-107)
[2019-10-31 05:52] LABS: ALANINE AMINOTRANSFERASE 10 U/L (12-78); ALBUMIN 1.9 g/dL (3.4-5.0); ANION GAP 8 mmol/L (5-15); CALCIUM 8.1 mg/dL (8.5-10.1); CREATININE 1.58 mg/dL (0.7-1.3)
[2019-10-31 05:58] LABS: ALKALINE PHOSPHATASE 86 U/L (45-117); BILIRUBIN,TOTAL 0.4 mg/dL (0.2-1.0); TOTAL PROTEIN 7.2 g/dL (6.4-8.2)
[2019-10-31] MEDS: HEPARIN 5,000 UNITS/ML, 1ML SQ SCH (06:30)
[2019-10-31 06:31] LABS: BASOPHILS # (AUTO) 0.03 x10^3/uL (0-0.1); BASOPHILS % (AUTO) 0 % (0-1); EOSINOPHILS # (AUTO) 0.34 x10^3/uL (0-0.4); EOSINOPHILS % (AUTO) 4 % (1-7); LYMPHOCYTES # (AUTO) 1.36 x10^3/uL (1-3.4); LYMPHOCYTES % (AUTO) 14 % (22-44); MD SCAN; MONOCYTES # (AUTO) 1.47 x10^3/uL (0.2-0.8); MONOCYTES % (AUTO) 15 % (2-9); NEUTROPHILS # (AUTO) 6.47 x10^3/uL (1.8-6.8); NEUTROPHILS % (AUTO) 67 % (42-75)
[2019-10-31 07:02] VITALS: BP 135/70
[2019-10-31] MEDS: TEMPLATE NON-FORMULARY MED. (Finasteride** 1 MG) PO SCH (07:53)
[2019-10-31] MEDS: ARIPIPRAZOLE 15 MG TABLET PO SCH (07:58)
[2019-10-31] MEDS: TAMSULOSIN 0.4 MG CAP.ER.24H PO SCH (07:58)
[2019-10-31] MEDS: FUROSEMIDE 40 MG TABLET PO SCH (07:59)
[2019-10-31] MEDS: MAGNESIUM HYDROXIDE 8%, 30ML UDC PO SCH (07:59)
[2019-10-31] MEDS: AMLODIPINE 10 MG TAB PO SCH (07:59)
[2019-10-31] MEDS: LABETALOL 100 MG TABLET PO SCH (07:59)
[2019-10-31] MEDS: DOCUSATE 100 MG CAPSULE PO SCH (07:59)
[2019-10-31] MEDS: OXYcodone/APAP 5/325MG TABLET PO PRN (08:27)
[2019-10-31] MEDS ORDERED: PIPERACILLIN/TAZO/PMX 3.375GM 50 ML IV SCH (11:00)
== END 2019-10-31 11:16 | disposition left against medical advice (07) | DRG 602 ==
LOC: ED 22:48 → EDIP 10-21 00:29 → 3N 10-21 01:02
PROVIDERS: ADMIT Family Medicine; ATTEND Internal Medicine
DX: L03.115 Cellulitis of right lower limb (principal); N17.0 Acute kidney failure with tubular necrosis; D68.59 Other primary thrombophilia; E87.1 Hypo-osmolality and hyponatremia; I42.9 Cardiomyopathy, unspecified; I50.22 Chronic systolic (congestive) heart failure; B96.5 Pseudomonas (aeruginosa) (mallei) (pseudomallei) as the cause of diseases classified elsewhere; D64.9 Anemia, unspecified; E87.5 Hyperkalemia; F17.200 Nicotine dependence, unspecified, uncomplicated; F31.9 Bipolar disorder, unspecified; I11.0 Hypertensive heart disease with heart failure; K59.00 Constipation, unspecified; D72.829 Elevated white blood cell count, unspecified; E11.628 Type 2 diabetes mellitus with other skin complications; Z59.0 Homelessness; Z63.8 Other specified problems related to primary support group; Z86.73 Personal history of transient ischemic attack (TIA), and cerebral infarction without residual deficits; Z86.74 Personal history of sudden cardiac arrest; Z79.4 Long term (current) use of insulin; I48.91 Unspecified atrial fibrillation; B18.2 Chronic viral hepatitis C
CPT/HCPCS: 36415; 80048; 80053; 82550; 83036; 83605; 83930; 83935; 84145; 85025; 85651; 86140; 86480; 87040; 87070; 87077; 87081; 87147; 87186; 87205; 87338; 87522; 87806; 93306; 93922; 96374; 96375; G0378; J0295; J1644; J2020; J3370; A9575; G0009; G0475; J0360; J2270; J7030; J7040; J7120; Q0163

== ENCOUNTER 2019-11-12 16:44 | Emergency (ER) | payer MEDICARE ==
[~2019-11-12] VITALS: Ht 177.8 cm; Wt 115.9 kg
--- NOTE | 2019-11-12 16:56 | NUR ---
THIS IS A 54 YO M BIB EMS FROM [facility] W/ C/O SOB X5 MONTHS, NON PRODUCTIVE COUGH X3 DAYS AND RT LEG WOUND DRESSING CHANGE. PT IS RESTING ON [employer] W/ CALL LIGHT IN REACH. RESP EVEN AND UNLABORED, NADN. PT CONNECTED TO MONITORING. AWAITING ORDERS.
[2019-11-12] MEDS ORDERED: NEOSPORIN OINT. PKT 1 PACKET ONE (17:07)
--- NOTE | 2019-11-12 17:11 | NUR ---
RAD IN ROOM.
--- NOTE | 2019-11-12 17:33 | NUR ---
LAB IN ROOM.
[2019-11-12 17:53] LABS: BASOPHILS # (AUTO) 0.05 x10^3/uL (0-0.1); BASOPHILS % (AUTO) 1 % (0-1); EOSINOPHILS % (AUTO) 4 % (1-7); LYMPHOCYTES # (AUTO) 1.67 x10^3/uL (1-3.4); LYMPHOCYTES % (AUTO) 23 % (22-44); MD NO; MEAN CORPUSCULAR HEMOGLOBIN 27.9 pg (27.5-34.5); MEAN CORPUSCULAR HGB CONC 32.5 g/dL (33.2-36.2); MEAN CORPUSCULAR VOLUME 85.9 fL (81-97); MEAN PLATELET VOLUME 6.7 fL (7.4-10.4); MONOCYTES # (AUTO) 0.85 x10^3/uL (0.2-0.8); MONOCYTES % (AUTO) 12 % (2-9); NEUTROPHILS # (AUTO) 4.52 x10^3/uL (1.8-6.8); NEUTROPHILS % (AUTO) 61 % (42-75); PLATELET COUNT 459 x10^3/uL (130-400); RED BLOOD COUNT 4.25 x10^6/uL (4.38-5.82); RED CELL DISTRIBUTION WIDTH 18.3 % (9.4-14.8)
[2019-11-12 18:04] LABS: ALBUMIN 2.5 g/dL (3.4-5.0); ANION GAP 10 mmol/L (5-15); CALCIUM 7.9 mg/dL (8.5-10.1); CHLORIDE 105 mmol/L (98-107); CREATININE 1.24 mg/dL (0.7-1.3)
[2019-11-12 18:08] LABS: TROPONIN I < 0.015 ng/mL (0.000-0.045)
--- NOTE | 2019-11-12 18:20 | NUR ---
ALL TESTS RESULTED. PT IS RESTING ON [employer] WATCHING TV AWAITING RESULTS.
[2019-11-12 18:57] VITALS: BP 145/68
--- NOTE | 2019-11-12 18:57 | NUR ---
PT SLEEPING ON [employer]. FIDELIA.
[2019-11-12] MEDS ORDERED: CEFTRIAXONE 1,000 MG ONE (19:15)
[2019-11-12] MEDS ORDERED: LIDOCAINE-MPF 1%, 2ML ONE (19:15)
--- NOTE | 2019-11-12 19:22 | NUR ---
PT MEDICATED PER EMAR.
[2019-11-12] MEDS ORDERED: CEFTRIAXONE 1,000 MG IM ONE (19:30)
--- NOTE | 2019-11-12 19:41 | NUR ---
Patient given discharge instructions and they have confirmed that they understand the instructions. Patient ambulatory with steady gait.
== END 2019-11-12 19:42 | disposition home or self-care (01) ==
LOC: ED 17:19
DX: I83.028 Varicose veins of left lower extremity with ulcer other part of lower leg (principal); R06.02 Shortness of breath; R05 Cough; F17.200 Nicotine dependence, unspecified, uncomplicated; I10 Essential (primary) hypertension; E11.10 Type 2 diabetes mellitus with ketoacidosis without coma; I48.91 Unspecified atrial fibrillation; J15.9 Unspecified bacterial pneumonia
CPT/HCPCS: 36415; 71045; 80048; 82040; 83880; 84484; 85025; 93005; 96372; 99285; J0696

== ENCOUNTER 2020-01-09 13:57 | Emergency (ER) | payer SELFPAY ==
[~2020-01-09] VITALS: Ht 172.7 cm; Wt 121.4 kg
[2020-01-09 15:02] LABS: BASOPHILS # (AUTO) 0.03 x10^3/uL (0-0.1); BASOPHILS % (AUTO) 0 % (0-1); EOSINOPHILS % (AUTO) 3 % (1-7); LYMPHOCYTES # (AUTO) 2.24 x10^3/uL (1-3.4); LYMPHOCYTES % (AUTO) 25 % (22-44); MD NO; MEAN CORPUSCULAR HEMOGLOBIN 29.4 pg (27.5-34.5); MEAN CORPUSCULAR HGB CONC 33.4 g/dL (33.2-36.2); MEAN CORPUSCULAR VOLUME 87.8 fL (81-97); MEAN PLATELET VOLUME 6.8 fL (7.4-10.4); MONOCYTES # (AUTO) 1.23 x10^3/uL (0.2-0.8); MONOCYTES % (AUTO) 14 % (2-9); NEUTROPHILS # (AUTO) 5.04 x10^3/uL (1.8-6.8); NEUTROPHILS % (AUTO) 57 % (42-75); PLATELET COUNT 362 x10^3/uL (130-400); RED BLOOD COUNT 4.67 x10^6/uL (4.38-5.82); RED CELL DISTRIBUTION WIDTH 20.3 % (9.4-14.8)
[2020-01-09 15:09] LABS: ALBUMIN 3.2 g/dL (3.4-5.0); ANION GAP 11 mmol/L (5-15); CALCIUM 8.2 mg/dL (8.5-10.1); CHLORIDE 104 mmol/L (98-107)
[2020-01-09 15:13] LABS: ALANINE AMINOTRANSFERASE 157 U/L (12-78); ALKALINE PHOSPHATASE 734 U/L (45-117); BILIRUBIN,TOTAL 0.6 mg/dL (0.2-1.0); CREATININE 1.02 mg/dL (0.7-1.3); TOTAL PROTEIN 8.7 g/dL (6.4-8.2)
--- NOTE | 2020-01-09 16:02 | NUR ---
TO GERRY FROM LOBBY
[2020-01-09 16:14] VITALS: BP 128/77
--- NOTE | 2020-01-09 16:14 | NUR ---
PT STATES "DON'T FEEL GOOD ALL OVER", STARTING THIS AM. PT CONNECTED TO MONITORING. CALL LIGHT IN REACH. AWAITING FURTHER ORDERS.
--- NOTE | 2020-01-09 16:16 | NUR ---
PT STATES HE HAD ONE BEER YESTERDAY, DENIES DRUG USE.
== END 2020-01-09 17:12 | disposition home or self-care (01) ==
LOC: ED 16:48
DX: F10.220 Alcohol dependence with intoxication, uncomplicated (principal); R42 Dizziness and giddiness; I21.9 Acute myocardial infarction, unspecified; Y90.0 Blood alcohol level of less than 20 mg/100 ml
CPT/HCPCS: 36415; 71046; 80053; 80307; 85025; 93005; 99285